=== PATIENT | female | born 1960 | race Caucasian/White ===

== ENCOUNTER 2022-04-25 10:30 | Emergency (ER) | payer MEDICAID, SELFPAY ==
[2022-04-25 10:39] VITALS: BP 150/89; PULSE 77; RESP 16; TEMP 37.1; O2SAT 99; BMI 23.6
[2022-04-25 11:48] LABS: COVID-19 Test Negative (Negative); IDNOW Serial# 16C4AD1C
--- NOTE | 2022-04-25 11:58 | ED.GENADULT ---
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 Patient did present to her primary care provider appointment this morning at [facility] and they stated that they would be unable to help her and referred her over here to the emergency room. Patient states that she felt mildly lightheaded today on shifting position from sitting to standing and states that she does have intermittent blurry vision which is typically associated with high sugars. She otherwise denies any fever, chills, traumatic event to the right shoulder and denies any shortness of breath, chest pain/palpitations and denies any GI or symptoms. Related Data Previous Rx's Medication Instructions Recorded metformin 500 mg tablet 500 mg PO BID 14 days #28 tabs 04/25/22 Allergies Allergy/AdvReac Type Severity Reaction Status Date / Time No Known Allergies Allergy Verified 04/25/22 10:43 Review of Systems Review of Systems: Pertinent positives and negatives as stated in HPI 10 point review of systems is otherwise negative. PMFSH Past Medical History Source: nursing notes reviewed Social History Social History Patient Tobacco Use Status: Never used Tobacco Use of substances other than those prescribed or required for medical reasons: No Advance Directives: No Advance Directives Information Provided: No Physical Exam ED Vital Signs: Vital Signs - 24 hr 04/25/22 10:39 04/25/22 12:00 04/25/22 13:55 Temperature 98.7 F Pulse Rate 77 69 74 Respiratory Rate 16 16 18 Blood Pressure 150/89 H 142/79 H 136/80 Pulse Oximetry 99 99 100 Oxygen Delivery Method Room Air Room Air Room Air BMI result Body Mass Index 23.6 VITAL SIGNS: Reviewed. GENERAL: Well developed, well nourished, in no acute distress. HEAD: Normocephalic/atraumatic EYES: PERRLA, EOMI EARS: Ext canals without abnormality OROPHARYNX: no oral lesions noted, posterior pharynx clear LUNGS: Normal breath sounds. No adventitious sounds or accessory muscle use. SpO2<99> CARDIOVASCULAR: Regular rate and rhythm without noted murmurs, no JVD or lower extremity edema. ABDOMEN: Soft, non-tender, non-distended with bowel sounds. MUSCULOSKELETAL: No tenderness, deformities, or effusions noted on gross inspection. EXTREMITIES: No cyanosis, clubbing or edema. SKIN: Inspection of the skin reveals no rashes NEUROLOGIC: Alert and oriented x 4. Strength and sensation to light touch were grossly intact x 4, no facial asymmetry, no pronator drift, cranial nerves 2-12 are grossly intact. Course Course Course Narrative: This 62-year-old female with history and clinical presentation suspicious for hyperglycemia and no access to medications at this time. She will be evaluated for the chest wall pain which on examination appears to be reproducible at the right upper chest wall and is otherwise PERC negative. Review of all investigations negative for acute findings and after patient received 2 L of IV fluids she states she is feeling much better. All results were discussed with her bedside and she knows that she will be receiving 2 weeks of medications and that she should call her primary care provider today to set up an appointment for re-evaluation in obtaining the rest of her medications. Medical Decision Making Lab Data Result diagrams: 04/25/22 12:03 04/25/22 12:03 Labs: Lab Results 04/25/22 04/25/22 04/25/22 Range/Units 11:25 12:03 12:03 WBC 6.9 (4.8-10.8) X10*3/uL RBC 3.90 L (4.20-5.50) X10*6/uL Hgb 11.3 L (12.0-16.0) g/dl Hct 34.6 L (37.0-47.0) % MCV 88.7 (80.0-98.0) fL MCH 29.0 (27.0-33.0) pg MCHC 32.7 (31.0-35.0) g/dl RDW 13.1 (11.0-16.0) % Plt Count 323 (160-400) X10*3/uL MPV 9.9 (9.4-12.3) fL Immature Gran % (Auto) 0.1 (0.0-0.4) % Neut % (Auto) 64.4 (45-73) % Lymph % (Auto) 26.8 (20-40) % [place] % (Auto) 7.7 (2-11) % Eos % (Auto) 0.4 (0-4) % Baso % (Auto) 0.6 (0-2) % Lymph # (Auto) 1.8 (1.2-4.9) X10*3/uL [place] # (Auto) 0.5 (0.1-1.2) X10*3/uL Eos # (Auto) 0.0 (0.0-0.4) X10*3/uL Baso # (Auto) 0.0 (0.0-0.2) X10*3/uL Abs Immat Gran (auto) 0.01 (0.00-0.03) X10*3/uL Absolute Neuts (auto) 4.4 (2.0-8.3) x10*3/uL Absolute Nucleated RBC 0.000 (0.0-0.012) X10*3/uL Nucleated RBC % (auto) 0.0 (0.0-0.2) /100WBC Sodium 144 (135-145) mmol/L Potassium 3.8 (3.3-5.1) mmol/L Chloride 106 (96-108) mmol/L Carbon Dioxide 26 (22-29) mmol/L Anion Gap 16 (12-20) BUN 11 (9-16) mg/dL Creatinine 0.88 (0.5-1.4) mg/dL Estim Creat Clear Calc 51.3 Estimated GFR > 60 POC Glucose (60-115) mg/dL Random Glucose 115 (60-115) mg/dL Calcium 9.9 (8.4-10.2) mg/dL Total Bilirubin 0.3 (0.0-1.0) mg/dL AST 30 (5-31) U/L ALT 34 H (0-31) U/L Alkaline Phosphatase 99 (39-117) U/L Total Protein 8.0 (6.5-8.0) g/dL Albumin 4.6 (3.5-5.0) g/dL Urine Color Urine Appearance Urine pH (5.0-9.0) Ur Specific [place] (1.005-1.025) Urine Protein (Neg-Trace) mg/dL Urine Glucose (UA) (Negative) mg/dL Urine Ketones (Negative) mg/dL Urine Blood (Negative) Urine Nitrite (Negative) Ur Leukocyte Esterase (Negative) Acetone, Qual Negative (Negative) COVID-19 (FREDRICK) Negative (Negative) COVID-19 Clin Com See Note 04/25/22 04/25/22 Range/Units 12:03 12:04 WBC (4.8-10.8) X10*3/uL RBC (4.20-5.50) X10*6/uL Hgb (12.0-16.0) g/dl Hct (37.0-47.0) % MCV (80.0-98.0) fL MCH (27.0-33.0) pg MCHC (31.0-35.0) g/dl RDW (11.0-16.0) % Plt Count (160-400) X10*3/uL MPV (9.4-12.3) fL Immature Gran % (Auto) (0.0-0.4) % Neut % (Auto) (45-73) % Lymph % (Auto) (20-40) % [place] % (Auto) (2-11) % Eos % (Auto) (0-4) % Baso % (Auto) (0-2) % Lymph # (Auto) (1.2-4.9) X10*3/uL [place] # (Auto) (0.1-1.2) X10*3/uL Eos # (Auto) (0.0-0.4) X10*3/uL Baso # (Auto) (0.0-0.2) X10*3/uL Abs Immat Gran (auto) (0.00-0.03) X10*3/uL Absolute Neuts (auto) (2.0-8.3) x10*3/uL Absolute Nucleated RBC (0.0-0.012) X10*3/uL Nucleated RBC % (auto) (0.0-0.2) /100WBC Sodium (135-145) mmol/L Potassium (3.3-5.1) mmol/L Chloride (96-108) mmol/L Carbon Dioxide (22-29) mmol/L Anion Gap (12-20) BUN (9-16) mg/dL Creatinine (0.5-1.4) mg/dL Estim Creat Clear Calc Estimated GFR POC Glucose 97 (60-115) mg/dL Random Glucose (60-115) mg/dL Calcium (8.4-10.2) mg/dL Total Bilirubin (0.0-1.0) mg/dL AST (5-31) U/L ALT (0-31) U/L Alkaline Phosphatase (39-117) U/L Total Protein (6.5-8.0) g/dL Albumin (3.5-5.0) g/dL Urine Color Straw Urine Appearance Clear Urine pH 5.5 (5.0-9.0) Ur Specific [place] <= 1.005 (1.005-1.025) Urine Protein Negative (Neg-Trace) mg/dL Urine Glucose (UA) Negative (Negative) mg/dL Urine Ketones Negative (Negative) mg/dL Urine Blood Negative (Negative) Urine Nitrite Negative (Negative) Ur Leukocyte Esterase Negative (Negative) Acetone, Qual (Negative) COVID-19 (FREDRICK) (Negative) COVID-19 Clin Com Discharge Plan Discharge Clinical Impression: Dehydration, Diabetes Patient Disposition: Home, Self-Care Instructions: Dehydration (ED), Diabetes and Nutrition (ED), Diabetes and Exercise (ED) Additional Instructions: 1. Se le proporcionar? 2 semanas de metformina. 2. Debe llamar al consultorio de rushing proveedor de atenci?n primaria hoy y programar orlando luis felipe para orlando reevaluaci?n. Regrese a la francis de emergencias si los s?ntomas empeoran. Prescriptions: New metformin 500 mg tablet 500 mg PO BID 14 Days Qty: 28 0RF Print Language: Taiwanese
[2022-04-25 12:00] VITALS: BP 142/79; PULSE 69; RESP 16; O2SAT 99
[2022-04-25] MEDS: 0.9 % Sodium Chloride 2,000 ML 999 ML IV (12:06)
[2022-04-25 12:08] LABS: MANUAL DIFF FLAG NO
[2022-04-25 12:09] LABS: Glucose, Whole Blood 97 mg/dL (60-115)
[2022-04-25 12:10] LABS: Basophils Percent Auto 0.6 % (0-2); Eosinophils Percent Auto 0.4 % (0-4); Hematocrit 34.6 % (37.0-47.0); Hemoglobin 11.3 g/dl (12.0-16.0); Imm Gran Abs Auto 0.01 X10*3/uL (0.00-0.03); Imm Gran Pct Auto 0.1 % (0.0-0.4); Lymphocytes Absolute Auto 1.8 X10*3/uL (1.2-4.9); Lymphocytes Percent Auto 26.8 % (20-40); Mean Corpuscular HGB Conc 32.7 g/dl (31.0-35.0); Mean Corpuscular Volume 88.7 fL (80.0-98.0); Mean Platelet Volume 9.9 fL (9.4-12.3); Monocytes Absolute Auto 0.5 X10*3/uL (0.1-1.2); Monocytes Percent Auto 7.7 % (2-11); Neutrophils Absolute Auto 4.4 x10*3/uL (2.0-8.3); Neutrophils Percent Auto 64.4 % (45-73); Platelet Count 323 X10*3/uL (160-400); Red Cell Distribution Width 13.1 % (11.0-16.0); White Blood Count 6.9 X10*3/uL (4.8-10.8)
[2022-04-25 12:25] LABS: Alanine Aminotransferase 34 U/L (0-31); Albumin Level 4.6 g/dL (3.5-5.0); Alkaline Phosphatase 99 U/L (39-117); Anion Gap 16 (12-20); Aspartate Amino Transferase 30 U/L (5-31); Bilirubin Total 0.3 mg/dL (0.0-1.0); Blood Urea Nitrogen 11 mg/dL (9-16); Calcium 9.9 mg/dL (8.4-10.2); Carbon Dioxide 26 mmol/L (22-29); Chloride 106 mmol/L (96-108); Creatinine Clr Calc Pharmacy 51.3; Estimated Glomerular Filt Rate > 60; Glucose Random 115 mg/dL (60-115); Potassium 3.8 mmol/L (3.3-5.1); Sodium 144 mmol/L (135-145)
[2022-04-25 12:27] LABS: Appearance Urine Clear; Color Urine Straw; Glucose Urine UA Negative (Negative); Leukocyte Esterase Urine Negative (Negative); Nitrite Urine Negative (Negative); PH 5.5 (5.0-9.0); Specific Gravity - Urine <= 1.005 (1.005-1.025); Urine Blood Negative (Negative); Urine Ketones Negative (Negative); Urine Protein Negative (Neg-Trace)
[2022-04-25 12:29] LABS: Acetone, serum QL Negative (Negative)
--- NOTE | 2022-04-25 12:51 | PC.NURSE ---
pt reports that she has been out of her diabetic meds x2 days, this morning she woke up with a headache and r shoulder pain that she relates to her sugar. she was seen by her pcp this morning and was referred to ed for further evaluation. she denies sob/cp/palpitations. poc 97 sandwich and juice given, vss.
[2022-04-25 13:55] VITALS: BP 136/80; PULSE 74; RESP 18; O2SAT 100
== END 2022-04-25 14:30 | disposition home or self-care (01) ==
PROVIDERS: Emergency Provider Student in an Organized Health Care Education/Training Program
DX: E86.0 Dehydration (principal); E11.9 Type 2 diabetes mellitus without complications; Z20.822 Contact with and (suspected) exposure to COVID-19; R51.9 Headache, unspecified
CPT/HCPCS: 80053; 81003; 82009; 82947; 85025; 87635; 96360; 96361; 99284

== ENCOUNTER 2022-09-24 10:59 | Outpatient (REF) | payer MEDICAID, SELFPAY ==
--- NOTE | ~2022-09-24 | XR_ITS ---
EXAMINATION: XR BILATERAL KNEES CLINICAL INFORMATION: Pain. COMPARISON: None. TECHNIQUE: 4 views of each knee. FINDINGS: RIGHT KNEE: There is no evidence of acute fracture or dislocation of the right knee. No right knee effusion is identified. There is prominent patella spurring at sites of insertion of the quadriceps and patella tendons. There is some prominence and question of an old fracture with some sclerosis about the tibial tubercle. No overlying soft tissue swelling is present in the study to suggest that this represents an acute fracture. The joint spaces are maintained. There is mild spurring about the lateral facet of the patellofemoral joint. LEFT KNEE: There is no evidence of acute fracture or dislocation of the left knee. No left knee effusion. Left knee joint spaces are maintained. There is mild spurring about the lateral facet of the patella. There is spurring at sites of insertion of the quadriceps and patellar tendons. XR/XR knee LT 4V IMPRESSION: 1. No acute fracture, dislocation, or effusion of either the right or left knees. 2. Question old avulsion injury involving the right tibial tubercle. 3. Changes of enthesopathy.
--- NOTE | ~2022-09-24 | XR_ITS ---
EXAMINATION: XR BILATERAL KNEES CLINICAL INFORMATION: Pain. COMPARISON: None. TECHNIQUE: 4 views of each knee. FINDINGS: RIGHT KNEE: There is no evidence of acute fracture or dislocation of the right knee. No right knee effusion is identified. There is prominent patella spurring at sites of insertion of the quadriceps and patella tendons. There is some prominence and question of an old fracture with some sclerosis about the tibial tubercle. No overlying soft tissue swelling is present in the study to suggest that this represents an acute fracture. The joint spaces are maintained. There is mild spurring about the lateral facet of the patellofemoral joint. LEFT KNEE: There is no evidence of acute fracture or dislocation of the left knee. No left knee effusion. Left knee joint spaces are maintained. There is mild spurring about the lateral facet of the patella. There is spurring at sites of insertion of the quadriceps and patellar tendons. XR/XR knee RT 4V IMPRESSION: 1. No acute fracture, dislocation, or effusion of either the right or left knees. 2. Question old avulsion injury involving the right tibial tubercle. 3. Changes of enthesopathy.
== END 2022-09-24 11:00 | disposition home or self-care (01) ==
LOC: HO.XRAY 10:59
PROVIDERS: PCP Internal Medicine; Visit Provider Internal Medicine
DX: M17.0 Bilateral primary osteoarthritis of knee (principal)
CPT/HCPCS: 73564

== ENCOUNTER 2022-10-09 15:00 | Outpatient (RCR) | payer MEDICAID, SELFPAY ==
--- NOTE | 2022-10-21 15:25 | MHC.PT.DC ---
[facility] [place] Office [place] Office [place] Office [address] [place] [address] [phone] F: [phone] F: [phone] F: [phone] F: [phone] Physical Therapy Discharge Report Diagnosis: TIFFANIE KNEE PAIN (KP) Date of Surgery: NA Date of Evaluation: 09/24/22 Date of Discharge: 10/21/22 Treatments to Date: 3 Cancellations to Date: 0 No Shows to Date: 4 Discharge Status: Visit Non-compliance Discharge Summary: no showed for 4 visits, no further visits scheduled. Attempts to reach patient by phone was not sucessful. Electronically signed by: Yesica Pizano PT DPT Please sign and return to therapist. Thank you for your referral.
== END 2022-10-21 15:25 | disposition home or self-care (01) ==
LOC: HO.PT 15:00
PROVIDERS: PCP Internal Medicine; Visit Provider Internal Medicine
DX: M17.0 Bilateral primary osteoarthritis of knee (principal)
CPT/HCPCS: 97110; 97161

== ENCOUNTER → 2022-12-31 09:28 | Outpatient (BNV) | payer MEDICAID, SELFPAY | PROVIDERS: PCP Internal Medicine; Visit Provider Internal Medicine Medical Oncology | DX: D64.9 Anemia, unspecified (principal) | CPT/HCPCS: 99204; 99213 ==

== ENCOUNTER 2023-02-14 10:44 | Outpatient (REF) | payer MEDICAID, SELFPAY ==
--- NOTE | ~2023-02-14 | MM_ITS ---
EXAMINATION: BONE DENSITOMETRY CLINICAL INDICATION: Osteopenia. COMPARISON: This is the patient's baseline examination. TECHNIQUE: Using a [employer] DXA System (software version: 13.1) manufactured by [employer], dual-energy x-ray absorptiometry was performed of the lumbar spine and left hip. The images are of good technical quality. Summary results are attached. FINDINGS: AP SPINE L1-L4: BMD 1.367 g/cm2, Z-score 3.1, T-score 1.6, normal. LEFT FEMUR, NECK: BMD 0.997 g/cm2, Z-score 1.2, T-score -0.3, normal. LEFT FEMUR, TOTAL: BMD 1.132 g/cm2, Z-score 2.1, T-score 1.0, normal. IDENTIFIED RISK FACTORS: Menopause, osteoporosis, rheumatoid arthritis. HISTORY OF FRACTURE: None listed. MEDICATIONS: None listed. MM/XR DEXA axial skeleton IMPRESSION: 1. DIAGNOSIS: Normal bone density based on the lowest T-score value of -0.3 in the femoral neck applying World Health Organization criteria. 2. 10-YEAR FRACTURE RISK PREDICTION, FRAX: According to the guidelines, FRAX calculation should only be performed on patients in the osteopenia bone density category. Therefore, FRAX was not performed on this patient. 3. Treatment Recommendations: NOF guidelines recommend consideration for treatment in postmenopausal women and men age 50 and older presenting with the following: -A hip or vertebral (clinical or morphometric) fracture. -T-score less than or equal to -2.5 at the femoral neck or spine after appropriate evaluation to exclude secondary causes. -Low bone mass at the hip or spine and a 10-year fracture probability by FRAX of greater than or equal to 3% for hip fracture or greater than or equal to 20% for major osteoporotic fracture based on the [place] adapted WHO algorithm. 4. Other Recommendations: All treatment decisions require clinical judgment and consideration of individual patient factors, including patient preferences, comorbidities, previous drug use, risk factors not captured in the FRAX model (e.g. frailty, falls, vitamin D deficiency, increased bone turnover, interval significant decline in bone density) and possible under or overestimation of fracture risk by FRAX. FUTURE SCAN RECOMMENDATION: People with diagnosed cases of osteoporosis or at high risk for fracture should have regular bone mineral density tests. For patients eligible for Medicare, routine testing is allowed once every 2 years. The testing frequency can be increased to one year for patients who have rapidly progressing disease, those who are receiving or discontinuing medical therapy to restore bone mass, or have additional risk factors.
== END 2023-02-14 10:45 | disposition home or self-care (01) ==
LOC: HO.MAMMO 10:44
PROVIDERS: PCP Internal Medicine; Visit Provider Internal Medicine
DX: Z13.820 Encounter for screening for osteoporosis (principal); Z78.0 Asymptomatic menopausal state; M89.9 Disorder of bone, unspecified
CPT/HCPCS: 77080

== ENCOUNTER 2023-05-19 09:16 | Outpatient (REF) | payer MEDICAID, SELFPAY ==
--- NOTE | ~2023-05-19 | MM_ITS ---
EXAMINATION: MM SCREENING DIGITAL BREAST TOMOSYNTHESIS, BILATERAL CLINICAL INFORMATION: Screening. Asymptomatic. COMPARISON: Mammography: 09/16/2006 TECHNIQUE: Digital breast tomosynthesis is performed in both the craniocaudal and mediolateral oblique views along with computer-aided detection (CAD). Synthesized 2D images are generated from the tomosynthesis. FINDINGS: There are scattered areas of fibroglandular density (ACR BI-RADS breast composition Category b). There are no suspicious masses, suspicious grouped calcifications, or areas of architectural distortion in either breast. The parenchymal pattern is stable from prior exams. MM/MM tomosynthesis screening BI IMPRESSION: No mammographic evidence of malignancy. ASSESSMENT: BI-RADS BI-RADS 1 - Negative RECOMMENDATION: Routine annual mammography screening. 1 year F/U This examination should not preclude the clinical evaluation of a suspicious palpable abnormality. This patient's information was entered into a reminder system with a target due date for their next mammogram.
== END 2023-05-19 09:17 | disposition home or self-care (01) ==
LOC: HO.MAMMO 09:16
PROVIDERS: PCP Internal Medicine; Visit Provider Internal Medicine
DX: Z12.31 Encounter for screening mammogram for malignant neoplasm of breast (principal)
CPT/HCPCS: 77063; 77067

== ENCOUNTER → 2023-05-19 10:00 | Outpatient (BNV) | payer MEDICAID, SELFPAY | PROVIDERS: PCP Internal Medicine; Visit Provider Radiology Diagnostic Radiology | DX: Z12.31 Encounter for screening mammogram for malignant neoplasm of breast (principal) | CPT/HCPCS: 77063; 77067 ==

== ENCOUNTER 2023-05-26 11:45 | Outpatient (REF) | payer MEDICAID, SELFPAY | END 2023-05-26 11:46 | disposition home or self-care (01) | LOC: HO.HOSX 11:45 | PROVIDERS: PCP Internal Medicine; Visit Provider Orthopaedic Surgery | DX: M25.561 Pain in right knee (principal); M25.562 Pain in left knee | CPT/HCPCS: 73565 ==

== ENCOUNTER 2023-05-26 11:45 | Outpatient (AMB) | payer MEDICAID, SELFPAY ==
[2023-05-26 12:10] VITALS: BMI 23.4
--- NOTE | 2023-05-26 12:10 | A.OFFVIS_ITS ---
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 States her right is worse than her left. Pain present for about 2+ years. States her knees feels like they will give out and has swelling with over use. Patient has tried P.T in thepast with good pain relief. 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 She complains of pain with daily activity, over the tibial tubercles bilaterally. She was told she would have to live with this pain her entire life. Her pain is worse with stairs or standing up off the floor. She says her knees swell from over use and occasionally feel like they will give out on her. Her pain worsened after she moved to her new apartment as she has more stairs to climb. She has done PT in the past, with good relief of her pain, and denies any prior injection. [facility] Family History Mother Father COPD (chronic obstructive pulmonary disease) Brother COPD (chronic obstructive pulmonary disease) Social History Household Members: Family Patient Tobacco Use Status: Never used Tobacco Second Hand Smoke Exposure: No service: No Current occupational status: unemployed Gender identity: Female Review of Systems Const All systems reviewed & are unremarkable except as noted in HPI and below Physical Exam Vital Signs: BMI result Body Mass Index 23.4 Const General: no acute distress, alert and awake Orientation/consciousness: patient oriented x3 HEENT Head: Yes normocephalic and Yes atraumatic Eyes EOM: EOMs intact bilaterally Resp Effort & Inspection: normal respiratory effort and able to speak in complete sentences Cardio Jugular venous distension: no JVD Skin General skin exam: turgor normal Rashes: no rashes Neuro General: patient oriented x3 Extrem Other: Bilateral Knees: Very prominent tibial tubercles Full ROM No reproducible pain Psych Appearance: grossly normal Affect: normal affect Attitude: cooperative Results Reviewed Results Reviewed: I personally reviewed relevant radiographs. Valgus pattern with prominent tibial tubercles bilaterally No degenerative changes Assessment & Plan Assessment & Plan (1) Knee pain, bilateral: Code(s): M25.561 - Pain in right knee; M25.562 - Pain in left knee Plan: This is a 63 year old woman with bilateral knee prominent tibial tubercles. She has occasional discomfort with kneeling, stairs and getting up off the floor.. She found some relief from her pain with PT in the past. I discussed her diagnosis and treatment options. There is no acute intervention warranted at this time. If her discomfort worsens she may return to consider bracing and/or injections Orders: Orders XR knee standing BI 05/26/23 M25.569 - Pain in unspecified knee Coding Level of Care Code New Pt Level 3 (66729) Diagnoses Knee pain, bilateral M25.561; M25.562
== END 2023-05-26 13:06 | disposition home or self-care (01) ==
PROVIDERS: PCP Internal Medicine; Visit Provider Orthopaedic Surgery
DX: M25.561 Pain in right knee (principal); M25.562 Pain in left knee
CPT/HCPCS: 99203

== ENCOUNTER 2023-10-01 10:06 | Outpatient (REF) | payer MEDICAID, SELFPAY ==
[2023-10-01 11:45] LABS: MANUAL DIFF FLAG NO
[2023-10-01 11:48] LABS: Basophils Percent Auto 0.6 % (0-2); Eosinophils Percent Auto 0.8 % (0-4); Hematocrit 32.3 % (37.0-47.0); Hemoglobin 10.5 g/dl (12.0-16.0); Imm Gran Abs Auto 0.01 X10*3/uL (0.00-0.03); Imm Gran Pct Auto 0.2 % (0.0-0.4); Lymphocytes Absolute Auto 1.8 X10*3/uL (1.2-4.9); Lymphocytes Percent Auto 33.9 % (20-40); Mean Corpuscular HGB Conc 32.5 g/dl (31.0-35.0); Mean Corpuscular Hemoglobin 28.8 pg (27.0-33.0); Mean Corpuscular Volume 88.7 fL (80.0-98.0); Mean Platelet Volume 10.4 fL (9.4-12.3); Monocytes Absolute Auto 0.4 X10*3/uL (0.1-1.2); Monocytes Percent Auto 6.7 % (2-11); Neutrophils Percent Auto 57.8 % (45-73); Platelet Count 332 X10*3/uL (160-400); Red Blood Count 3.64 X10*6/uL (4.20-5.50); Red Cell Distribution Width 13.5 % (11.0-16.0); White Blood Count 5.2 X10*3/uL (4.8-10.8)
[2023-10-01 12:32] LABS: Creatinine Urine 125.06 mg/dL; Microalbum/Creatinine Ratio Ur 4.7 ug/mg cr (<30)
[2023-10-01 13:03] LABS: Anion Gap 16 (12-20); Blood Urea Nitrogen 8 mg/dL (9-16); Calcium 9.6 mg/dL (8.4-10.2); Carbon Dioxide 27 mmol/L (22-29); Chloride 105 mmol/L (96-108); Cholesterol 139 mg/dL (<200); Estimated Glomerular Filt Rate > 60; Glucose Random 157 mg/dL (60-115); HDL Cholesterol 47 mg/dL (>40); LDL Cholesterol Calculated 67 mg/dL (<100); Potassium 3.9 mmol/L (3.3-5.1); Sodium 144 mmol/L (135-145); Triglycerides 126 mg/dL (<150)
[2023-10-01 14:14] LABS: TSH reflex Free T4 2.36 uIU/mL (0.32-4.0); Vitamin D 25-OH Total 35.4 ng/mL (>30)
[2023-10-01 14:16] LABS: Reflex LDLD? No
[2023-10-02 08:00] LABS: HBS Num1 > 1000.00 mIU/mL (0-7.99); HBc Num1 6.43 S/CO (0.00-0.79); HBsAGNum1 0.32 S/CO (0.00-0.99); Hepatitis A Antibody IgM 0.56 Index (0-0.79); Hepatitis B Surface Antigen Negative (Negative); ~HepC Num1 0.07 S/CO (0.00-0.79); ~Hepatitis A Antibody IgM Nonreactive (Nonreactive); ~Hepatitis B Surface Antibody REACTIVE (Nonreactive); ~Hepatitis C Antibody Nonreactive (Nonreactive)
[2023-10-02 09:56] LABS: HBc Num2 6.42 S/CO; HBc Num3 6.28 S/CO; Hepatitis B Core Antibody Reactive (Nonreactive)
[2023-10-04 12:44] LABS: TS Negative Control Passed; TS Panel A 0; TS Panel B 0; TS Positive Control Passed; TSpotTB Negative (Negative)
== END 2023-10-01 10:07 | disposition home or self-care (01) ==
LOC: HO.HHCL 10:06
PROVIDERS: Visit Provider Internal Medicine
DX: E11.9 Type 2 diabetes mellitus without complications (principal); R55 Syncope and collapse; D64.9 Anemia, unspecified; Z00.00 Encounter for general adult medical examination without abnormal findings; Z11.1 Encounter for screening for respiratory tuberculosis; Z11.4 Encounter for screening for human immunodeficiency virus [HIV]
CPT/HCPCS: 36415; 80048; 80061; 82043; 82306; 82570; 84443; 85025; 86481; 86704; 86705; 86706; 86709; 86803; 87340

== ENCOUNTER 2023-10-02 07:33 | Outpatient (REF) | payer MEDICAID, SELFPAY ==
--- NOTE | ~2023-10-02 | CT_ITS ---
CT HEAD WITHOUT IV CONTRAST INDICATION: Headache. Presyncope. COMPARISON: None available. TECHNIQUE: Multidetector CT acquisitions of the head was obtained without IV contrast. This CT examination was performed using dose optimization techniques as appropriate, variously including the following: *Automated exposure control *Adjustment of mA and/or kV according to patient size (this includes techniques or standardized protocols for targeted exams where dose is matched to indication/reason for exam; i.e. extremities or head) *Use of iterative reconstruction technique FINDINGS: There is no intracranial hemorrhage, hydrocephalus, extra-axial surface collection, midline shift, or other herniation pattern. Ying to white matter differentiation is diffusely maintained without evidence of an evolved acute territorial infarct. The basilar cisterns are preserved. No significant soft tissue abnormality. No acute osseous abnormality. The paranasal sinuses and the mastoid air cells are well aerated. CT/CT head/brain wo IV con IMPRESSION: No acute intracranial abnormality.
== END 2023-10-02 07:34 | disposition home or self-care (01) ==
LOC: HO.CT 07:33
PROVIDERS: PCP Internal Medicine; Visit Provider Internal Medicine
DX: R55 Syncope and collapse (principal)
CPT/HCPCS: 70450

== ENCOUNTER 2024-04-13 | Outpatient (REF) | payer MEDICAID, SELFPAY ==
[2024-04-16 15:10] LABS: HPV mRNA E6/E7 rflx NOT DETECTED
== END 2024-04-13 00:01 | disposition home or self-care (01) ==
LOC: HO.LNP
PROVIDERS: Visit Provider Internal Medicine
DX: Z12.4 Encounter for screening for malignant neoplasm of cervix (principal); Z11.51 Encounter for screening for human papillomavirus (HPV); R87.614 Cytologic evidence of malignancy on smear of cervix
CPT/HCPCS: 87624; 88175

== ENCOUNTER 2024-05-20 08:45 | Outpatient (REF) | payer MEDICAID, SELFPAY ==
--- NOTE | ~2024-05-20 | MM_ITS ---
EXAMINATION: MM SCREENING DIGITAL BREAST TOMOSYNTHESIS, BILATERAL CLINICAL INFORMATION: Screening. Asymptomatic. COMPARISON: Mammography: Comparison is made with available priors TECHNIQUE: Digital breast mammography with tomosynthesis is performed in both the craniocaudal and mediolateral oblique views along with computer-aided detection (CAD). FINDINGS: There are scattered areas of fibroglandular density (ACR BI-RADS breast composition Category b). There are no significant masses, abnormal calcifications, or other abnormalities. MM/MM tomosynthesis screening BI IMPRESSION: No mammographic evidence of malignancy. ASSESSMENT: BI-RADS BI-RADS 1 - Negative RECOMMENDATION: Routine annual mammography screening. 1 year F/U This examination should not preclude the clinical evaluation of a suspicious palpable abnormality. This patient's information was entered into a reminder system with a target due date for their next mammogram. Electronically signed by: Jossie Terrazas DO 05/31/2024 05:18 PM EDT
== END 2024-05-20 08:46 | disposition home or self-care (01) ==
LOC: HO.MAMMO 08:45
PROVIDERS: PCP Internal Medicine; Visit Provider Internal Medicine
DX: Z12.31 Encounter for screening mammogram for malignant neoplasm of breast (principal)
CPT/HCPCS: 77063; 77067

== ENCOUNTER → 2024-05-20 09:45 | Outpatient (BNV) | payer MEDICAID, SELFPAY | PROVIDERS: PCP Internal Medicine; Visit Provider Internal Medicine | DX: Z12.31 Encounter for screening mammogram for malignant neoplasm of breast (principal) | CPT/HCPCS: 77063; 77067 ==

== ENCOUNTER 2024-07-07 12:33 | Outpatient (REF) | payer MEDICAID, SELFPAY ==
--- NOTE | ~2024-07-07 | US_ITS ---
EXAMINATION: US DIAGNOSTIC ULTRASOUND BREAST, LEFT CLINICAL INFORMATION: 64-year-old female complaining of upper left breast pain. No palpable abnormality. Negative mammography 05/20/2024. COMPARISON: Mammography 05/20/2024, 05/19/2023. TECHNIQUE: Ultrasound of the left breast is performed with real-time torres scale imaging and color Doppler. Attention was given to the 9:00 to the 3:00 axis to include the area of reported pain. FINDINGS: There is no focal suspicious finding. There is no solid mass, architectural abnormality, abnormal shadowing, cystic abnormality, or edema in the soft tissue planes. Only normal fatty breast tissue is identified. No correlate to the region of pain. US/US breast LT limited mamm only IMPRESSION: No findings suspicious for malignancy. -No imaging correlate identified to explain superior left breast pain. Recommend clinical management and follow-up. Otherwise, recommend resuming routine annual screening mammography. ASSESSMENT: BI-RADS 1: Negative RECOMMENDATION: 1. Patient should be managed based on the clinical impression. 2. Otherwise, routine annual screening mammography. Electronically signed by: Junior Monsalve MD 07/07/2024 01:10 PM RAMON KAUR
== END 2024-07-07 12:34 | disposition home or self-care (01) ==
LOC: HO.MAMMO 12:33
PROVIDERS: PCP Internal Medicine; Visit Provider Internal Medicine
DX: N64.4 Mastodynia (principal)
CPT/HCPCS: 76642

== ENCOUNTER → 2024-07-07 13:00 | Outpatient (BNV) | payer MEDICAID, SELFPAY | PROVIDERS: PCP Internal Medicine; Visit Provider Radiology Diagnostic Radiology | DX: N64.4 Mastodynia (principal) | CPT/HCPCS: 76642 ==

== ENCOUNTER 2024-08-23 09:42 | Outpatient (REF) | payer MEDICAID, SELFPAY ==
[2024-08-23 11:13] LABS: MANUAL DIFF FLAG NO
[2024-08-23 11:16] LABS: Basophils Percent Auto 0.6 % (0-2); Eosinophils Absolute Auto 0.1 X10*3/uL (0.0-0.4); Hemoglobin 10.9 g/dl (12.0-16.0); Imm Gran Abs Auto 0.01 X10*3/uL (0.00-0.03); Imm Gran Pct Auto 0.2 % (0.0-0.4); Lymphocytes Absolute Auto 1.6 X10*3/uL (1.2-4.9); Lymphocytes Percent Auto 31.1 % (20-40); Mean Corpuscular HGB Conc 32.1 g/dl (31.0-35.0); Mean Corpuscular Hemoglobin 28.4 pg (27.0-33.0); Mean Corpuscular Volume 88.5 fL (80.0-98.0); Mean Platelet Volume 10.5 fL (9.4-12.3); Monocytes Absolute Auto 0.4 X10*3/uL (0.1-1.2); Monocytes Percent Auto 8.5 % (2-11); Neutrophils Percent Auto 58.6 % (45-73); Platelet Count 353 X10*3/uL (160-400); Red Blood Count 3.84 X10*6/uL (4.20-5.50); Red Cell Distribution Width 13.4 % (11.0-16.0); White Blood Count 5.2 X10*3/uL (4.8-10.8)
[2024-08-23 11:37] LABS: Alanine Aminotransferase 23 U/L (0-31); Albumin Level 4.2 g/dL (3.5-5.0); Alkaline Phosphatase 91 U/L (39-117); Anion Gap 13 (12-20); Aspartate Amino Transferase 26 U/L (5-31); Bilirubin Total 0.3 mg/dL (0.0-1.0); Blood Urea Nitrogen 9 mg/dL (9-16); Calcium 9.2 mg/dL (8.4-10.2); Carbon Dioxide 26 mmol/L (22-29); Chloride 108 mmol/L (96-108); Cholesterol 157 mg/dL (<200); Estimated Glomerular Filt Rate > 60; Glucose Random 159 mg/dL (60-115); HDL Cholesterol 54 mg/dL (>40); LDL Cholesterol Calculated 87 mg/dL (<100); Potassium 3.9 mmol/L (3.3-5.1); Sodium 143 mmol/L (135-145); Total Protein 7.6 g/dL (6.5-8.0); Triglycerides 82 mg/dL (<150)
[2024-08-23 11:45] LABS: Creatinine Urine 177.98 mg/dL; Microalbum/Creatinine Ratio Ur 6.7 ug/mg cr (<30)
[2024-08-23 11:48] LABS: Ferritin 57 ng/mL (10-250)
[2024-08-23 11:50] LABS: HIV AB/AG Nonreactive (Nonreactive); HIV Num 1 0.05 S/CO (0.00-0.99)
[2024-08-23 11:52] LABS: Reflex LDLD? No; Syphilis Screen Nonreactive (Nonreactive)
== END 2024-08-23 09:43 | disposition home or self-care (01) ==
LOC: HO.HHCL 09:42
PROVIDERS: Internal Medicine Medical Oncology; Visit Provider Internal Medicine
DX: E11.9 Type 2 diabetes mellitus without complications (principal); B97.7 Papillomavirus as the cause of diseases classified elsewhere; D64.9 Anemia, unspecified
CPT/HCPCS: 36415; 80053; 80061; 82043; 82306; 82570; 82728; 85025; 86780; 87389

== ENCOUNTER 2025-03-31 17:29 | Outpatient (REF) | payer MEDICAID, SELFPAY ==
[2025-03-31 20:49] LABS: Bacterial Vaginosis PCR NEGATIVE (Negative); Candida Group PCR NOT DETECTED (Not Detect); Candida glab krusei PCR NOT DETECTED (Not Detect); Trichomonas vaginalis PCR NOT DETECTED (Not Detect)
== END 2025-03-31 17:30 | disposition home or self-care (01) ==
LOC: HO.HHCLNP 17:29
PROVIDERS: Visit Provider Nurse Practitioner Family
DX: R30.9 Painful micturition, unspecified (principal)
CPT/HCPCS: 81515

== ENCOUNTER 2025-07-23 12:01 | Emergency (ER) | payer MEDICAID, SELFPAY ==
--- OUTSIDE RECORDS SUMMARY | 2025-07-20 15:40 | XMS_ITS | Encounter Summary ---
Author Organization [employer] Address [address] [facility] [address] [place] [address] Care Team Providers Care Cryptologic Linguist Name Role Phone Anna Magallanes MD Primary Care Provider + Encounter Details Date Type Department Care Team (Late st Contact Info) Description 07/20/2025 3:40 PM EST Office Visit [facility] [address] [place] [address] Anmol Nicole MD [address] [place] [address] Dizziness (Primary Dx); Epigastric discomfort Social History Tobacco Use Types Packs/Day Years Used Date Smoking Tobacco: Never Passive Smoke Exposure: Never Smokeless Tobacco: Never Alcohol Use Standard Drinks/Week Comments Never 0 (1 standard drink = 0.6 oz pur e alcohol) Depression Answer Date Recorded Patient Health Questionnaire-9 Score 5 04/28/2025 Patient Health Questionnaire-9 Score 5 04/28/2025 Last PHQ-9: Questionnaire Data Not on file 0 04/28/2025 Housing Stability Answer Date Recorded What is your housing situation today? I have rios payan 04/13/[address] you li ve. Do you have problems with any of the following? None of the above 04/13/2024 Food Insecurity Answer Date Recorded Within the past 12 months, y ou worried that your food would run out before you got money to buy more: Never True 04/13/2024 Within the past 12 months,th e food you bought just didn't last and you didn't have enough money to get more: Never True Transportation Answer Date Recorded In the past 12 months, has l ack of transportation kept you from medical appts, meetings, work or from getting things needed for daily living? Yes, it has kept me from non-medical meetings, work, or getting things that I need 09/29/2024 Utilities Answer Date Recorded In the past 12 months, has t he electric, gas, oil or water company threatened to shut off services in your home? No 04/13/2024 Depression Answer Date Recorded Patient Health Questionnaire-2 Score 2 04/28/2025 Internet Access Answer Date Recorded Internet Access Q1 Yes 04/23/2024 Internet Access Q2 Not on file 04/23/2024 Comments No Sex and Gender Information Value Date Recorded Sex Assigned at Female 06/24/2022 10:15 AM EDT Legal Sex Female 10:15 AM EDT Gender Identity Female 06/24/2022 10:15 AM EDT Sexual Orientation Straight 06/24/2022 10 :15 AM EDT documented as of this encounter Last Filed Vital Signs Vital Sign Reading Time Taken Comments Blood Pressure 122/85 07/20/2025 3:36 PM EST Pulse 91 07/20/2025 3:36 PM EST Temperature 36.8 C (98.2 F) 07/20/2025 3:36 PM EST Respiratory Rate 20 07/20/2025 3:36 PM EST Oxygen Saturation 100% 07/20/2025 3:36 PM EST Inhaled Oxygen Concentration - - Weight 53.5 kg (118 lb) 07/20/2025 3:36 PM EST Height 154.9 cm (5' 1 ) 07/20/2025 3:36 PM EST Body Mass Index 22.3 07/20/2025 3:36 PM EST documented in this encounter Progress Notes * Anmol Nicole MD - 07/20/2025 3:40 PM EST Subjective Patient ID: Gisel Johnston is a 65 y.o. female. HPI Extended Insurance Clerk: Renae 2 weeks ago Gisel had onset of dizziness and nausea; dizziness is described as blurry vision, feeling confused, being off balance, diarrhea 1x/day, epigastric discomfort, and the room spins when she lays down. Symptoms are mild when she wakes in the AM, and worsen in the evening. No fever, vomiting, SOB, cough, or headache.. She stopped mirtazapine after symptoms started, but symptoms persist. Lives with granddaughter. Not employed. Never smoked. No EtOH. No illicit substances. Patient Active Problem List Diagnosis Date Noted Painful urination 03/31/2025 Prolapsed uterus 03/31/2025 Chronic bilateral lower abdominal pain 03/31/2025 Current moderate episode of major depressive disorder (CMS/HCC) (HCC) 02/28/2025 Primary hypertension 10/13/2024 Breast pain, left 06/17/2024 Pre-syncope 08/29/2023 Encounter for preventive health examination 08/29/2023 Encounter for colorectal cancer screening 08/29/2023 Screening mammogram for breast cancer 05/09/2023 HPV in female 02/12/2023 Bone disease 01/24/2023 At high risk for osteoporosis 12/20/2022 Anemia 11/21/2022 Primary osteoarthritis of both knees 08/15/2022 Primary osteoarthritis of both hands 08/15/2022 Anxiety 08/14/2022 Depressive disorder 08/14/2022 Generalized arthritis 08/14/2022 Hyperlipidemia 08/14/2022 Type 2 diabetes mellitus without complication 08/14/2022 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 Eyes: Positive for visual disturbance. Respiratory: Negative for shortness of breath. Cardiovascular: Negative for chest pain. Gastrointestinal: Positive for abdominal pain, diarrhea and nausea. Negative for vomiting. Skin: Negative for rash. Neurological: Positive for dizziness. Negative for headaches. Objective Physical Exam Constitutional: Appearance: Normal appearance. HENT: Right Ear: Tympanic membrane, ear canal and external ear normal. Left Ear: Tympanic membrane, ear canal and external ear normal. Nose: Nose normal. Mouth/Throat: Mouth: Mucous membranes are moist. Pharynx: Oropharynx is clear. Eyes: Conjunctiva/sclera: Conjunctivae normal. Pupils: Pupils are equal, round, and reactive to light. Cardiovascular: Rate and Rhythm: Normal rate and regular rhythm. Heart sounds: No murmur heard. Pulmonary: Effort: Pulmonary effort is normal. Breath sounds: Normal breath sounds. Musculoskeletal: General: Normal range of motion. Cervical back: No tenderness. Skin: Findings: No rash. Neurological: Mental Status: She is alert. Cranial Nerves: Cranial nerves 2-12 are intact. Sensory: Sensation is intact. Motor: Motor function is intact. No pronator drift. Coordination: Romberg sign positive. Ynnmkg-Efdt-Iybicy Test normal. Gait: Gait is intact. Psychiatric: Mood and Affect: Mood normal. Behavior: Behavior normal. Procedures Assessment/Plan Diagnoses and all orders for this visit: Dizziness Symptoms have been constant, worse in the evenings. Gisel is uncomfortable here in exam room. She is going to the ED now for further evaluation and treatment. Epigastric discomfort To be evaluated in the ED as above. H. pylori stool antigen ordered. Will call patient with results. documented in this encounter Plan of Treatment Upcoming Encounters Date Type Department Care Team (Late st Contact Info) Description 09/21/2025 2:30 PM EST Office Visit [facility] [address] [place], [place] [id number] Jaleel, Angélica, OD [address] [place], [place] [id number] Scheduled Orders Name Type Priority Associated Diagnoses Orde r Schedule Helicobacter pylori Antigen, EIA, Stool Lab Routine Epigastric discomfort Expected: 07/20/2025 (Approximate), Expires: 07/20/2026 documented as of this encounter Goals Goal Patient Goal Type Associated Problems Recent Progress Patient-Stated? Author Help patients manage their type 2 diabetes Care Plan Help patients manage their type 2 diabetes Heidi Sullivan Weekly blood pressure task Care Plan Weekly blood pressure task No Heidi Yepez Help patients manage their type 2 diabetes Care Plan Help patients manage their type 2 diabetes No Heidi Yepez Patient has chronic kidney disease Care Plan Patient has chronic kidney disease No Heidi Yepez Weekly blood pressure task Care Plan Weekly blood pressure task No Heidi Yepez Patient has chronic kidney disease Care Plan Patient has chronic kidney disease No Heidi Yepez Weekly blood pressure task Care Plan Weekly blood pressure task No Clint Stanley Weekly blood pressure task Care Plan Weekly blood pressure task No Clint Stanley Patient has chronic kidney disease Care Plan Patient has chronic kidney disease No Clint Stanley Patient has chronic kidney disease Care Plan Patient has chronic kidney disease No Clint Stanley Weekly blood pressure task Care Plan Weekly blood pressure task No Neyda Villalta Weekly blood pressure task Care Plan Weekly blood pressure task No Neyda Villalta Patient has chronic kidney disease Care Plan Patient has chronic kidney disease No Neyda Villalta Patient has chronic kidney disease Care Plan Patient has chronic kidney disease No Neyda Villalta Weekly blood pressure task Care Plan Weekly blood pressure task No Renae Ayala [place] Weekly blood pressure task Care Plan Weekly blood pressure task No Renae Ayala [place] Patient has chronic kidney disease Care Plan Patient has chronic kidney disease No Renae Ayala [place] Patient has chronic kidney disease Care Plan Patient has chronic kidney disease No Renae Ayala [place] documented as of this encounter Visit Diagnoses Diagnosis Dizziness- Primary Dizziness and giddiness Epigastric discomfort documented in this encounter Additional Health Concerns Active Problems Noted Date Diagnosed Date Help patients manage their type 2 diabetes 07/11 Weekly blood pressure task 07/11/2025 Help patients manage their type 2 diabetes 07/11 Patient has chronic kidney disease 07/11/2025 Weekly blood pressure task 07/11/2025 Patient has chronic kidney disease 07/11/2025 Weekly blood pressure task 07/11/2025 Weekly blood pressure task 07/11/2025 Patient has chronic kidney disease 07/11/2025 Patient has chronic kidney disease 07/11/2025 Weekly blood pressure task 07/15/2025 Weekly blood pressure task 07/15/2025 Patient has chronic kidney disease 07/15/2025 Patient has chronic kidney disease 07/15/2025 Weekly blood pressure task 07/20/2025 Weekly blood pressure task 07/20/2025 Patient has chronic kidney disease 07/20/2025 Patient has chronic kidney disease 07/20/2025 Assessment Noted Time PHQ-9 Depression Total Score: 5 04/28/20 25 12:31 PM EDT documented as of this encounter Care Teams Cryptologic Linguist Relationship Specialty Start Date End Date Anna Magallanes MD [address] [place] [id number] PCP - General Internal Medicine 08/15/22 documented as of this encounter
[2025-07-23 12:13] VITALS: BP 116/57; PULSE 75; RESP 18; TEMP 36; O2SAT 98; BMI 21.0
--- NOTE | 2025-07-23 12:18 | ED.GENADULT ---
HPI - General Adult General Chief complaint: Abdominal Pain Stated complaint: vomiting Time Seen by Provider: 07/23/25 16:04 History of Present Illness ED Provider: dejuan HPI narrative: Pt left prior to eval by myself. see RN notes Related Data Home Medications ?Medication ?Instructions ?Recorded ?Confirmed aspirin 81 mg tablet,delayed 81 mg PO DAILY 12/31/22 02/14/25 release atorvastatin 10 mg tablet 10 mg PO DAILY 12/31/22 02/14/25 mirtazapine 30 mg tablet 30 mg PO BEDTIME 12/31/22 02/14/25 Previous Rx's ?Medication ?Instructions ?Recorded metformin 500 mg tablet 500 mg PO BID 14 days #28 tabs 04/25/22 cyanocobalamin (vitamin B-12) 1,000 mcg sublingual DAILY #90 ea 04/01/24 1,000 mcg sublingual lozenge ascorbic acid (vitamin C) 500 mg 500 mg PO DAILY #90 tabs 06/17/25 tablet (Vitamin C) ferrous sulfate 325 mg (65 mg 325 mg PO DAILY #90 tabs 06/17/25 iron) tablet Allergies Allergy/AdvReac Type Severity Reaction Status Date / Time No Known Allergies Allergy Verified 07/23/25 12:16 [facility] Family History Family History Mother Father COPD (chronic obstructive pulmonary disease) Brother COPD (chronic obstructive pulmonary disease) Social History Social History Household Members: Family Patient Tobacco Use Status: Never used Tobacco Second Hand Smoke Exposure: No Advance Directives: No Advance Directives Information Provided: No Do you have a plan to hurt others: No Plan service: No Current occupational status: unemployed Gender identity: Female Physical Exam ED Vital Signs: Vital Signs - 24 hr 07/23/25 12:13 07/23/25 16:11 Temperature 96.8 F 97.3 F Pulse Rate 75 70 Respiratory Rate 18 16 Blood Pressure 116/57 L 119/76 Pulse Oximetry 98 100 Oxygen Delivery Method Room Air Room Air BMI result Body Mass Index 21.0 Course Course Course Narrative: This is a Rapid Medical Examination (RME) performed by Norberto De La Garza PA-C in triage. Full HPI, ROS, assessment and treatment plan per primary provider in the Main ED. Hx: 65 yo F here for eval of nausea, epigastric abd pain, dizziness, x2 weeks. no vomiting. dizziness described as intermittent room spinning sensation. Plan: labs, ekg Medical Decision Making Lab Data 07/23/25 12:35 07/23/25 12:35 Labs: Lab Results 07/23/25 Range/Units 12:35 WBC 6.0 (4.8-10.8) X10*3/uL RBC 3.69 L (4.20-5.50) X10*6/uL Hgb 10.5 L (12.0-16.0) g/dl Hct 31.8 L (37.0-47.0) % MCV 86.2 (80.0-98.0) fL MCH 28.5 (27.0-33.0) pg MCHC 33.0 (31.0-35.0) g/dl RDW 13.2 (11.0-16.0) % Plt Count 327 (160-400) X10*3/uL MPV 9.4 (9.4-12.3) fL Immature Gran % (Auto) 0.2 (0.0-0.4) % Neut % (Auto) 72.4 (45-73) % Lymph % (Auto) 20.2 (20-40) % [place] % (Auto) 6.5 (2-11) % Eos % (Auto) 0.2 (0-4) % Baso % (Auto) 0.5 (0-2) % Lymph # (Auto) 1.2 (1.2-4.9) X10*3/uL [place] # (Auto) 0.4 (0.1-1.2) X10*3/uL Eos # (Auto) 0.0 (0.0-0.4) X10*3/uL Baso # (Auto) 0.0 (0.0-0.2) X10*3/uL Abs Immat Gran (auto) 0.01 (0.00-0.03) X10*3/uL Absolute Neuts (auto) 4.4 (2.0-8.3) x10*3/uL Absolute Nucleated RBC 0.000 (0.0-0.012) X10*3/uL Nucleated RBC % (auto) 0.0 (0.0-0.2) /100WBC Sodium 141 (135-145) mmol/L Potassium 3.5 D (3.3-5.1) mmol/L Chloride 107 (96-108) mmol/L Carbon Dioxide 23 (22-29) mmol/L Anion Gap 15 (12-20) BUN 12 (9-16) mg/dL Creatinine 0.83 (0.5-1.4) mg/dL Estim Creat Clear Calc 52.3 Estimated GFR > 60 Random Glucose 173 H (60-115) mg/dL Calcium 9.7 (8.4-10.2) mg/dL Magnesium 1.9 (1.6-2.6) mg/dL Total Bilirubin 0.4 (0.0-1.0) mg/dL AST 17 (5-31) U/L ALT 18 (0-31) U/L Alkaline Phosphatase 78 (39-117) U/L Troponin I High Sens < 2.7 (<3.5-17.0) ng/L Total Protein 7.4 (6.5-8.0) g/dL Albumin 4.5 (3.5-5.0) g/dL Discharge Plan Discharge Clinical Impression: Abdominal pain Patient Disposition: Left W/O Completing Treatment Prescriptions: No Action metformin 500 mg tablet 500 mg PO BID 14 Days Qty: 28 0RF atorvastatin 10 mg tablet 10 mg PO DAILY aspirin 81 mg tablet,delayed release (DR/EC) 81 mg PO DAILY mirtazapine 30 mg tablet 30 mg PO BEDTIME cyanocobalamin (vitamin B-12) 1,000 mcg Lozenge 1,000 mcg SUBLINGUAL DAILY Qty: 90 4RF ascorbic acid (vitamin C) [Vitamin C] 500 mg Tablet 500 mg PO DAILY Qty: 90 3RF ferrous sulfate 325 mg (65 mg iron) Tablet 325 mg PO DAILY Qty: 90 3RF Discharge Date/Time: 07/23/25 18:34
--- NOTE | 2025-07-23 12:20 | ECG_ITS ---
Test Reason : DIZZY Blood Pressure : */* mmHG Vent. Rate : 75 BPM Atrial Rate : 75 BPM P-R Int : 116 ms QRS Dur : 78 ms QT Int : 328 ms P-R-T Axes : 55 22 27 degrees QTcB Int : 366 ms Normal sinus rhythm Nonspecific T wave abnormality Abnormal ECG When compared with ECG of 18-Jul-2003 08:12, No significant change was found Referred By: Raina De La Garza Electronically Signed By: MUMTAZ OLIVEIRA
[2025-07-23 12:39] LABS: MANUAL DIFF FLAG NO
[2025-07-23 12:45] LABS: Hematocrit 31.8 % (37.0-47.0); Hemoglobin 10.5 g/dl (12.0-16.0); Imm Gran Abs Auto 0.01 X10*3/uL (0.00-0.03); Imm Gran Pct Auto 0.2 % (0.0-0.4); Lymphocytes Absolute Auto 1.2 X10*3/uL (1.2-4.9); Mean Corpuscular HGB Conc 33.0 g/dl (31.0-35.0); Mean Corpuscular Hemoglobin 28.5 pg (27.0-33.0); Mean Corpuscular Volume 86.2 fL (80.0-98.0); NRBC Abs Auto 0.000 X10*3/uL (0.0-0.012); NRBC Pct Auto 0.0 /100WBC (0.0-0.2); Platelet Count 327 X10*3/uL (160-400); Red Blood Count 3.69 X10*6/uL (4.20-5.50); White Blood Count 6.0 X10*3/uL (4.8-10.8)
[2025-07-23 12:57] LABS: Alanine Aminotransferase 18 U/L (0-31); Albumin Level 4.5 g/dL (3.5-5.0); Alkaline Phosphatase 78 U/L (39-117); Anion Gap 15 (12-20); Aspartate Amino Transferase 17 U/L (5-31); Blood Urea Nitrogen 12 mg/dL (9-16); Calcium 9.7 mg/dL (8.4-10.2); Carbon Dioxide 23 mmol/L (22-29); Chloride 107 mmol/L (96-108); Creatinine Clr Calc Pharmacy 52.3; Estimated Glomerular Filt Rate > 60; Magnesium 1.9 mg/dL (1.6-2.6); Potassium 3.5 mmol/L (3.3-5.1); Sodium 141 mmol/L (135-145); Total Protein 7.4 g/dL (6.5-8.0)
[2025-07-23 13:04] LABS: Troponin-I High Sensitivity < 2.7 ng/L (<3.5-17.0)
--- OUTSIDE RECORDS SUMMARY | 2025-07-23 15:22 | XMS_ITS | Encounter Summary ---
Author Organization [employer] Address [address] [facility] [address] [place] [address] Care Team Providers Care Bioprocessing Manufacturing Technician Name Role Phone Anna Magallanes MD Primary Care Provider + Encounter Details Date Type Department Care Team (Late st Contact Info) Description 05/19/2025 Orders Only [facility] [address] [place] [address] Tia Alejandre FNP [address] [place] [address] Social History Tobacco Use Types Packs/Day Years [...] AM EDT documented as of this encounter Progress Notes * Grisel Yousif CNM - 05/19/2025 8:56 AM EDT Pelvic floor PT might help. [facility] offers this, as does [facility]. You could also refer to [facility] * Grisel Yousif CNM - 05/19/2025 8:56 AM EDT Put in referral to urogyn or physical therapy. If physical therapy, specify pelvic floor in comments documented in this encounter Plan of Treatment Upcoming Encounters Date Type Department Care Team (Late st Contact Info) Description 09/21/2025 2:30 PM EST Office Visit [facility] [address] [place] [address] Angélica Marmolejo, OD [address] [place] [address] documented as of this encounter Visit Diagnoses Not on filedocumented in this encounter Additional Health Concerns Assessment Noted Time PHQ-9 Depression Total Score: 5 04/28/20 12:31 PM EDT documented as of this encounter Care Teams Bioprocessing Manufacturing Technician Relationship Specialty Start Date End Date Anna Magallanes MD [address] [place] [id number] PCP - General Internal Medicine 08/15/22 documented as of this encounter
--- OUTSIDE RECORDS SUMMARY | 2025-07-23 15:22 | XMS_ITS | Clinical Summary ---
Author Organization [employer] Address [address] [place] [address] Care Team Providers Care Grades 9 12 Tutor Name Role Phone Anna Magallanes MD Primary Care Provider + Allergies No known active allergies Medications * This document contains information received from the source organization and may not represent a complete record from that organization. Alcohol Swabs (Easy Touch Alcohol Prep Medium) 70 % padsIndications:Typ e 2 diabetes mellitus without complication, without long-term current use of insulin ([facility]) USE TWICE DAILY 100 each 3 Active TRUEplus Lancets 33G miscIndications:Typ e 2 diabetes mellitus without complication, without long-term current use of insulin ([facility]) TEST BLOOD SUGAR TWICE DAILY 100 each 3 Active metFORMIN (Glucophage) 500 MG tabletIndications:T ype 2 diabetes mellitus without complication, without long-term current use of insulin ([facility]) TAKE 1 TABLET BY MOUTH TWICE DAILY IN THE MORNING AND IN THE EVENING WITH MEALS 180 tablet 3 5 Active mirtazapine (Remeron) 30 MG tabletIndications:D epressive disorder TAKE 1 TABLET BY MOUTH EVERY DAY BEFORE BEDTIME 90 tablet 3 5 Active glucose blood (FREESTYLE LITE) test strip TEST BLOOD SUGAR TWICE DAILY 50 strip 5 5 Active atorvastatin (Lipitor) 10 MG tabletIndications:H yperlipidemia, unspecified hyperlipidemia type Take 1 tablet (10 mg) by mouth at bedtime. 90 tablet 3 5 Active citalopram (CeleXA) 10 MG tabletIndications:C urrent moderate episode of major depressive disorder, unspecified whether recurrent (CMS/HCC) (HCC) Take 1 tablet (10 mg) by mouth Once per day. 90 tablet 3 5 04/28/20 26 Active lisinopril 5 MG tabletIndications:P rimary hypertension Take 1 tablet (5 mg) by mouth Once per day. 90 tablet 3 5 04/28/20 26 Active Active Problems Problem Noted Date Diagnosed Date Painful urination 03/31/2025 Prolapsed uterus 03/31/2025 Chronic bilateral lower abdominal pain Current moderate episode of major depressive disorder (CMS/HCC) 02/28/2025 Assessment & Plan (02/28/2025 4:18 PM EDT): Extensive counseling done today I called [facility] services will be in place I added to her medication citalopram 10 mg and I advised to follow-up with PCP Primary hypertension 10/13/2024 Assessment & Plan (02/28/2025 4:18 PM EDT): I advise low-sodium diet, I decided today to increase her list lisinopril to 5 mg daily Follow up with the Nurse for blood pressure check in 2 weeks. Continue with a low sodium diet and regular exercise as tolerated. For BP > or = to 140/90 (or 130/80 for diabetic patients) increase Lisinopril to 10 mg once a day Assessment & Plan (12/21/2024 3:44 PM EDT): Probably mostly controlled. Compliant w/meds Continue lisinopril 2.5 mg counseled re low salt diet/increase moderate physical activity. Check home BP BIW and prn CP/GARY/OSORIO Non smoking patient. Follow-up with me in 3 months Assessment & Plan (10/13/2024 4:32 PM EST): New onset, start Lisinopril 2.5 mg FU in 3-4 weeks. Breast pain, left 06/17/2024 Assessment & Plan (06/17/2024 1:13 PM EDT): Probably muscular, will take Tylenol prn. Will do left breast US to rule out all the pathologies. Pre-syncope 08/29/2023 Assessment & Plan (11/21/2023 9:33 AM EDT): No further episodes I explained it could be related to fluctuating BS levels, watch for hypoglycemia Counseled for tighter control of DM Assessment & Plan (08/29/2023 2:00 PM EST): Order labs and CT scan of the brain Counseled regarding tight control of DM and HTN Counseled to go to ED if Sx repeat Cont Aspirin for now Encounter for preventive health examination 12/2023 Assessment & Plan (08/29/2023 2:01 PM EST): Discussed with patient re increase fresh fruit and vegetable intake. Counseled re moderate exercise as tolerated, up to 20min/d Patient feels safe at home. PAP smear up to date, next next one due 12/2023 Mammogram up to date next one due on 05/2024 Bone density test up to date, next one due 04/2025 Eye exam up to date next one due october 2023 CRC screen decline colonoscopy. Agreed for cologaurd Lipids/FBS to be ordered Vaccinations agreed to PCV 20. Decline Covid and flu IZ Dental visit overdue, recommended to have dental appointment JONNY Encounter for colorectal cancer screening 2023 Screening mammogram for breast cancer 05/09/2023 HPV in female 02/12/2023 Assessment & Plan (06/17/2024 1:14 PM EDT): Resolved. Will do pap smears next year. Pt agreed to have STI testing. Pt does not have a sexual partner at this time. Assessment & Plan (08/29/2023 2:00 PM EST): Recent. she had coloscopy more than 5 yrs ago Repeat PAP/HPV next yr and will fu from there Assessment & Plan (02/12/2023 9:59 AM EDT): PAP smear otherwise is normal, colposcopy done 3 years ago repeat pap in 1 year Bone disease 01/24/2023 Overview (01/24/2023): Ro osteoporosis At high risk for osteoporosis 12/20/2022 Assessment & Plan (12/20/2022 12:40 PM EDT): Order bone density test Pelvic pain 12/20/2022 Assessment & Plan (12/20/2022 12:40 PM EDT): order Pelvic US Anemia 11/21/2022 Assessment & Plan (10/13/2024 4:31 PM EST): Hemoglobin is stable, she is followed by Hematology. Continue Iron + B12 supplementation. Colorectal CA screening UTD. Assessment & Plan (11/21/2023 9:34 AM EDT): See by Hemoglobin has been stable and she will continue to FU No Tx needed at this time, she completed iron supplementation this month Assessment & Plan (08/29/2023 1:59 PM EST): Check Hemoglobin and ferritin levels Check CBC Pt decline colonoscopy referral Assessment & Plan (02/12/2023 12:01 PM EDT): Hemoglobin seems to be stable around 10, seen by hematology, inital workup for celiac disease was negative, vitamin defeiciencies, MM, etc. FU with hematology in 3 months Pt has never had colonoscopy will discuss again about it at next appointment Assessment & Plan (12/20/2022 12:41 PM EDT): no apparent cause, reportedly normal colonoscopy last year refer to hematology Assessment & Plan (11/21/2022 2:42 PM EDT): Mild. Pt is not menstruating for more than 5 years now, addressed the issue of needing a colonoscopy but she refuses at this time, due to bad experience with her mother after colonoscopy. Cologaurd last year was reportedly normal Will repeat anemia studies next month and decide referral to hematology, fu with me in 1 month with labs televisit Primary osteoarthritis of both knees 08/15/2022 Assessment & Plan (04/28/2024 3:20 PM EDT): Significantly improved She will re consult prn Assessment & Plan (08/29/2023 1:59 PM EST): Pt has limitation for ADL's and needs some assistance, Will refer to career development directorsubstation manager to evaluate for home care probably 1-2 hr per day max Assessment & Plan (05/09/2023 2:20 PM EDT): Partial improvement sp PT Continue Tylenol/ibuprofen prn Recommended acupuncture clinic Refer to orthopedics, agreed to steroid injection Assessment & Plan (08/15/2022 10:00 AM EST): No effusion. Refer to PT Order Xyrays of both knees and counseled to go to acupuncture. Primary osteoarthritis of both hands 08/15/2022 Assessment & Plan (08/15/2022 10:01 AM EST): Has Eberden's nodes, no tenosynovitis. Take tylenol prn, topical creams Anxiety 08/14/2022 Depressive disorder 08/14/2022 Assessment & Plan (02/20/2024 9:25 AM EDT): We discussed about setting limits with family members,, she will talk with her brother re using the living room only to sleep, cooking his own meals etc. She will leave up to her daughter re the care of her grandchild, We discussed re med management, possibly to re start SSRI. She will continue Remeron only and will fu wt next appt I will refer her to adult day programs. Assessment & Plan (08/15/2022 10:02 AM EST): On Remeron at bedtime only Not taking topamax or SSRIs previously prescribed. Feels safe at home FU at future visits Generalized arthritis 08/14/2022 Hyperlipidemia 08/14/2022 Assessment & Plan (11/21/2023 9:34 AM EDT): LDL is at goal, continue atorvastatin Continue lifetime modifications Recommended moderate amount of exercise and increase consumption of fruit, vegetables, fish and high fiber foods. Should decrease consumption of highly saturated fats or trans fats. Assessment & Plan (02/12/2023 12:07 PM EDT): Lipds are at goal, continue low dose atorvastatin tight contol of DM We discussed re rx options. She wants to be more strict with life style modifications. Recommended moderate amount of exercise and increased consumption of fruit, vegetables, fish and high fiber foods. We discussed about avoiding consumption of highly saturated fats or trans fats. FU lipids in 6m Assessment & Plan (08/15/2022 10:03 AM EST): We discussed re rx options. She wants to be more strict with life style modifications and continue using atorvastatin. Recommended moderate amount of exercise and increased consumption of fruit, vegetables, fish and high fiber foods. We discussed about avoiding consumption of highly saturated fats or trans fats. Check lipids Type 2 diabetes mellitus without complication Assessment & Plan (02/28/2025 4:17 PM EDT): Improved today's A1c is 6.6 advised to be adherent to diabetic diet continue with same interventions and follow-up with PCP Assessment & Plan (10/13/2024 4:30 PM EST): Controlled. Continue on Metformin. Counseled re more frequent low calorie/carb meals. Check fgstk 1 X daily Encouraged physical activity as tolerated. No evidence of DM neuropathy. She declined Influenza Immunization today. Assessment & Plan (06/17/2024 1:15 PM EDT): Will check A1C with next set of labs, it is probably uncontrolled. Continue Metformin 500 mg BID and fu in 3 months. Assessment & Plan (02/20/2024 9:22 AM EDT): Controlled. A1c is at goal. Continue on metformin bid Counseled re more frequent low calorie/carb meals. Check fgstk 1x daily Encouraged physical activity as tolerated. FU in 3 months. Assessment & Plan (11/21/2023 9:33 AM EDT): A1c is trending up Continue Metformin 500mg BID, refer to mirror installer Counseled re more frequent low calorie/carb meals. Check fgstk daily Encouraged physical activity as tolerated. FU in 3-4 months. Assessment & Plan (08/29/2023 1:59 PM EST): Controlled A1c at goal and medication is Metformin once /day FU 3 m Assessment & Plan (05/09/2023 2:21 PM EDT): Controlled. A1c is at goal. Continue on metformin same dose Counseled re more frequent low calorie/carb meals. Check fgstk 1x daily Encouraged physical activity as tolerated. FU in 3-4 months. Assessment & Plan (02/12/2023 12:03 PM EDT): lately uncontrolled, most likely due to being out of medications. Pt to continue metformin 500 BID and FU in 3 months Counseled re more frequent low calorie/carb meals. Encouraged physical activity as tolerated. patient does not have microalbuminuria Routine eye exam up to date. Lipids up to date. Assessment & Plan (11/21/2022 2:43 PM EDT): Controlled a1c is at goal. Continue metformin BID Counseled re more frequent low calorie/carb meals. Check fgstk daily Encouraged physical activity as tolerated. FU at next appointment. Assessment & Plan (08/15/2022 10:02 AM EST): Fairly controlled. A1c is at goal. Continue on metformin 500mg bid Counseled re more frequent low calorie/carb meals. Check fgstk 1x daily Encouraged physical activity as tolerated. Order labs and refer to optometry for routine evaluation FU in 3 months. 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 Will repeat PAP Smear this yr and fu w/ me Assessment & Plan (12/20/2022 12:41 PM EDT): PAP smear done today will FU at next appointment, repeat in 5 years if today's is normal. no concern for domestic violence counseled regarding STI prvention, use of condoms. Pt is not sexually active at this time. Encounters Date Type Department Care Team Description 07/20/2025 3:40 PM EST Office Visit [facility] [address] [place] [address] [phone] Anmol Nicole MD Dizziness (Primary Dx); Epigastric discomfort 07/20/2025 Travel 07/15/2025 [place] [address] Anna Magallanes MD Telephone Call 07/11/2025 Patient Outreach [address] [phone] Anna Magallanes MD Care Coordination ([facility] outreach for SDOH PT-1 and food needs-referral completed /) 07/11/2025 Patient Outreach [address] [phone] Anna Magallanes MD Pre-visit Planning (SDOH screening negative and tobacco screening negative) 06/28/[address] [phone] Anna Magallanes MD Housing Form (I called the patient, regarding a reasonable accommodation from [employer]. She is requesting to be allowed to keep an emotional support dog. I informed her that her PCP denied the request. She stated that she will hot die picker the form at [facility], and will take it to her psych provider, to ask if it may be completed by them.///) 06/10/[address] [phone] Anna Magallanes MD Change PCP 06/02/[address] [phone] Anna Magallanes MD Housing Form (I called the patient, regarding a reasonable accommodation from [employer]. She is requesting to be allowed to keep an emotional support dog. I informed her that her PCP denied the request. She stated that she has an appointment with her behavioral health provider this afternoon, and will take the form to them for completion. She will hot die picker the form at [facility], before her appointment.) 05/19/2025 Orders Only [facility] [address] [place] [phone] Lucho Alejandree, CONRADO 04/28/2025 12:15 PM EDT Office Visit [facility] [address] [place] [phone] Anna Magallanes MD Current moderate episode of major depressive disorder, unspecified whether recurrent (CMS/HCC); Primary hypertension 04/28/2025 Telephone [facility] [address] [place] [phone] Anna Magallanes MD referral follow up 04/28/2025 Travel 04/27/2025 Telephone [facility] [address] [place] [address] Anna Magallanes MD chart prep from Last 3 Months Immunizations Immunization Administration Dates Next Due Pneumococcal Conjugate PCV 20 08/29/2023 Tdap 02/12/2023 Family History Medical History Relation Name Comments COPD Brother COPD Father Hx HTN. at age 72 CAD Mother Relation Name Status Comments Brother Father Mother Social History Tobacco Use Types Packs/Day Years Used Date Smoking Tobacco: Never Passive Smoke Exposure: Never Smokeless Tobacco: Never Tobacco Cessation:Counseling Given: Not Answered Alcohol Use Standard Drinks/Week Comments Never 0 [...] Orientation Straight 06/24/2022 10 :15 AM EDT Last Filed Vital Signs Vital Sign Reading [...] Mass Index 22.3 07/20/2025 3:36 PM EST Plan of Treatment Upcoming Encounters Date Type Department Care Team (Late st Contact Info) Description 09/21/2025 2:30 PM EST Office Visit [facility] [address] [place] [address] [phone] Angélica Marmolejo OD [address] [place] [address] Health Maintenance Due Date Last Done Comments CT Colonography 1960 Colonoscopy 1960 FIT 1960 Sigmoidoscopy 1960 Zoster Vaccines (1 of 2) 2012 FOBT 09/15/2024 09/15/2023 Cervical Cancer Screening 04/13/2025 HPV/Cotest 04/13/2025 04/13/2024, 05/0 10/2022, 12/20/2022, Additional history exists Pap Smear 04/13/2025 04/13/2024, 050 10/2022, 12/20/2022 COVID-19 Vaccine ( season) 2025 Influenza Vaccine (#1) 2025 Mammogram 07/07/2025 07/07/2024, 04/26, 05/19/2023, Additional history exists Diabetes: Urine Protein Screening 08/23/2025 08/23/2024, 08/23/2024, 10/01/2023, Additional history exists Lipid Panel 08/23/2025 08/23/2024, 02/2024, 10/23/2022 Diabetes: Hemoglobin A1C 08/31/2025 025, 10/13/2024, 02/20/2024, Additional history exists Diabetes: Foot Exam 10/13/2025 10/13/2024, 10/13/2024, 10/13/2024, Additional history exists Alcohol/Substance Use Screening 02/28/2026 02/28/2025 Disability Screening 02/28/2026 02/28/2025 Depression Screening 04/28/2026 04/28/2025, 04/28/20 Eye Exam 06/18/2026 06/18/2024, 05/26, 06/18/2024, Additional history exists SDOH Screening 07/11/2026 07/11/2025 Tobacco Screening 07/20/2026 07/20/2025 Colorectal Cancer Screening 09/15/2026 FIT DNA/Cologuard 09/15/2026 09/15/2023 DTaP/Tdap/Td Vaccines (2 - Td or Tdap) 02/12/2033 02/12/2023 RSV Patients and Patients Aged 60 years or older (1 - 1-dose 75+ series) 2037 Pneumococcal Vaccine: 50+ Years Completed 08/29/2023 Hepatitis C Screening Completed 10/01/2023 HIV Screening Completed 08/23/2024 HIB Vaccines Aged Out No longer eligi ble based on patient's age to complete this topic HPV Vaccines Aged Out No longer eligi ble based on patient's age to complete this topic Hepatitis A Vaccines Aged Out No long er eligible based on patient's age to complete this topic Hepatitis B Vaccines Aged Out No long er eligible based on patient's age to complete this topic IPV Vaccines Aged Out No longer eligi ble based on patient's age to complete this topic Meningococcal B Vaccine Aged Out No l onger eligible based on patient's age to complete this topic Meningococcal Vaccine Aged Out No marty chi eligible based on patient's age to complete this topic RSV under 20 months Aged Out No longe r eligible based on patient's age to complete this topic Rotavirus Vaccines Aged Out No longer eligible based on patient's age to complete this topic Goals Goal Patient Goal Type Associated Problems Recent Progress Patient-Stated? Author Help patients manage their type 2 diabetes Care Plan Help patients manage their type 2 diabetes Heidi Sullivan Weekly blood pressure task Care Plan Weekly blood pressure task No Heidi Yepez Help patients manage their type 2 diabetes Care Plan Help patients manage their type 2 diabetes Heidi Sullivan Patient has chronic kidney disease Care Plan Patient has chronic kidney disease Heidi Sullivan Weekly blood pressure task Care Plan Weekly blood pressure task No Heidi Yepez Patient has chronic kidney disease Care Plan Patient has chronic kidney disease Heidi Sullivan Weekly blood pressure task Care [...] Plan Weekly blood pressure task No Renae Aylaa [place] Patient has chronic kidney disease Care Plan Patient has chronic kidney disease No Renae Ayala [place] Patient has chronic kidney disease Care Plan Patient has chronic kidney disease No Renae Ayala MA Procedures Procedure Name Priority Date/Time Associated Diagnosis Comments POCT GLYCATED HEMOGLOBIN, TOTAL Routine 02/28/2025 10:37 AM EDT Type 2 diabetes mellitus without complication, without long-term current use of insulin (CMS/HCC) HIV 1/2 ANTIGEN/ANTIBODY, FOURTH GENERATION W/RFL Routine 08/23/2024 10:01 AM EST HPV in female ALBUMIN, RANDOM URINE W/CREATININE Routine 08/23/2024 9:45 AM EST Type 2 diabetes mellitus without complication, without long-term current use of insulin (CMS/HCC) LIPID PANEL WITH REFLEX TO DIRECT LDL Routine 08/23/2024 9:45 AM EST Type 2 diabetes mellitus without complication, without long-term current use of insulin (CMS/HCC) BI US BREAST LIMITED LEFT Routine 07/07/2024 1:00 PM EST HPV MRNA E6/E7 REFLEX TO HPV 16, 18/45 Routine 04/13/2024 12:21 PM EDT Cytologic evidence of malignancy on smear of cervix [employer] PAP Routine 04/13/2024 12:21 PM EDT HEPATITIS PANEL, GENERAL Routine 10/01/2023 10:08 AM EST Encounter for preventive health examination LAB COLOGUARD COLON CANCER SCREEN Routine 09/15/2023 4:26 PM EST Encounter for colorectal cancer screening from Last 3 Months or Most Recently Relevant to Health Maintenance Results * (ABNORMAL) POCT HGB A1C (02/28/2025 10:37 AM EDT) [facility] Hemoglobin A1C 6.6(A) 4.0 - 5.7 % QC Media Lot # [id number] Lot# Expiration Date ,[id number] Blood 02/28/2025 10:3 7 AM EDT us Gisel Esposito MD POINT OF CARE TEST EN TER/EDIT ORDERABLES Final Result * HIV-1/2 Antigen and Antibodies, Fourth Generation, with Reflexes (08/23/2024 10:01 AM EST) [facility] HIV AB/AG Nonreactive Nonreactive [facility] Comment:HIV-1 p24 Ag and/or HIV-1/HIV-2 Ab not detected.A test result that is nonreactive does not exclude thepossibility of exposure to or infection with HIV-1 and/orHIV-2. Nonreactive results in this assay for individualswith prior exposure to HIV-1 and/or HIV-2 may be due toantigen and antibody levels that are below the limit ofdetection of this assay.The [employer] HIV Ag/Ab Combo assay result andsupplemental assay results should be interpreted inconjunction with the patient's clinical presentation,history and other laboratory results. If the results areinconsistent with clinical evidence, additional testing issuggested to confirm the result. Blood Venous blood specimen / Unknown 08/23/2024 10:01 AM EST 08/23/2024 11:10 AM EST us Anna Magallanes MD LAB BLOOD ORDERABLES Fin al Result [facility] [address] [place] [phone] [phone] * Lipid Panel with Reflex to Direct LDL (08/23/2024 9:45 AM EST) Triglycerides 82 <150 mg/dL [facility] Comment:Desirable Triglyceri de: less than 150 mg/dLBorderline High Triglyceride 150-199 mg/dLHigh Triglyceride: 200-499 mg/dLVery High Triglyceride: greater than or equal to 5OO mg/dL Cholesterol 157 <200 mg/dL [facility] Comment:Desirable Cholestero l: less than 200 mg/dLBorderline High Cholesterol: 200-239 mg/dLHigh Cholesterol: greater than 239 mg/dL LDL Cholesterol Calculated 87 <100 mg/dL [facility] Comment:Desirable LDL: less than 100 mg/dLNear Optimal/Above Optimal LDL: 110- 129 mg/dLBorderline High LDL: 130-159 mg/dLHigh LDL: 160-189 mg/dLVery High LDL: greater than or equal to 190 mg/dL HDL Cholesterol 54 >40 mg/dL [facility] Comment:Desirable HDL: great er than 40 mg/dL Note: This HDL assay may give artificially low results in patients with liver disease. Blood 08/23/2024 9:45 AM EST 08/23/2024 11:10 AM EST us Anna Magallanes MD LAB BLOOD ORDERABLES Fin al Result [facility] [address] [place] [phone] * Albumin, Random Urine W/Creatinine (08/23/2024 9:45 AM EST) Creatinine, Urine 177.98 mg/dL [facility] Microalbumin Urine 12.0 mg/L [facility] Microalbum Creatinine Ratio Ur 6.7 <30 ug/mg cr [facility] Comment:Albumin/Creatinine R atio Reference Ranges: Normal: < 30 ug/mg creatinine Microalbuminuria: 30 - 300 ug/mg creatinineClinical Albuminuria: > 300 ug/mg creatinine Urine (Urine, Random) 08/23/2024 9:45 AM EST 08/23/2024 11:04 AM EST us Anna Magallanes MD LAB URINE ORDERABLES Fin al Result [facility] [address] [place] [address] [phone] * BI US Breast Limited Left (07/07/2024 1:00 PM EST) Anatomical Region Laterality Modality Breast Left Ultrasound 07/07/2024 1:00 PM EST Narrative 07/07/2024 1:14 PM EST [facility] [address] [place] [address] Ultrasound Report Signed Patient: Gisel Johnston MR#: [id number] : 1960 Acct:[id number] Age/Sex: 64 / F ADM Date: 07/07/24 Loc: HO.MAMMO Attending Dr: Anna Magallanes MD Ordering Physician: Anna Magallanes MD Date of Service: 07/07/24 Procedure(s): US breast LT limited mamm only Accession Number(s): [id number] cc: Anna Magallanes MD EXAMINATION: US DIAGNOSTIC ULTRASOUND BREAST, LEFT CLINICAL INFORMATION: 64-year-old female complaining of upper left breast pain. No palpable abnormality. Negative mammography 05/20/2024. COMPARISON: Mammography 05/20/2024, 05/19/2023. TECHNIQUE: Ultrasound of the left breast is performed with real-time torres scale imaging and color Doppler. Attention was given to the 9:00 to the 3:00 axis to include the area of reported pain. FINDINGS: There is no focal suspicious finding. There is no solid mass, architectural abnormality, abnormal shadowing, cystic abnormality, or edema in the soft tissue planes. Only normal fatty breast tissue is identified. No correlate to the region of pain. US/US breast LT limited mamm only IMPRESSION: No findings suspicious for malignancy. -No imaging correlate identified to explain superior left breast pain. Recommend clinical management and follow-up. Otherwise, recommend resuming routine annual screening mammography. ASSESSMENT: BI-RADS 1: Negative RECOMMENDATION: 1. Patient should be managed based on the clinical impression. 2. Otherwise, routine annual screening mammography. Electronically signed by: Junior Monsalve MD 07/07/2024 01:10 PM EST RP Dictated By: Junior Monsalve MD Signed By: <Electronically signed by Junior Monsalve MD in OV> 07/07/24 1310 DD/ 1300 TD/TT: 07/07/24 1302 Wine Fermenter: Procedure Note Donotuseinterpreter, Image - [facility]07/[facility] [address] [place] [address] Ultrasound Report Signed Patient: David Johnston#: [id number] : [id number]:[id number] Age/Sex: 64 / FADM Date: 07/07/24 Loc: HO.MAMMO Attending Dr: Anna Magallanes MD Ordering Physician: Anna Magallanes MD Date of Service: 07/07/24 Procedure(s): US breast LT limited mamm only Accession Number(s): [id number] cc: Anna Magallanes MD EXAMINATION: US DIAGNOSTIC ULTRASOUND BREAST, LEFT CLINICAL INFORMATION: 64-year-old female complaining of upper left breast pain. No palpable abnormality. Negative mammography 05/20/2024. COMPARISON: Mammography 05/20/2024, 05/19/2023. TECHNIQUE: Ultrasound of the left breast is performed with real-time torres scale imaging and color Doppler. Attention was given to the 9:00 to the 3:00 axis to include the area of reported pain. FINDINGS: There is no focal suspicious finding. There is no solid mass, architectural abnormality, abnormal shadowing, cystic abnormality, or edema in the soft tissue planes. Only normal fatty breast tissue is identified. No correlate to the region of pain. US/US breast LT limited mamm only IMPRESSION: No findings suspicious for malignancy. -No imaging correlate identified to explain superior left breast pain. Recommend clinical management and follow-up. Otherwise, recommend resuming routine annual screening mammography. ASSESSMENT: BI-RADS 1: Negative RECOMMENDATION: 1. Patient should be managed based on the clinical impression. 2. Otherwise, routine annual screening mammography. Electronically signed by: Junior Monsalve MD 07/07/2024 01:10 PM EST RP Dictated By: Junior Monsalve MD Signed By: <Electronically signed by Junior Monsalve MD in OV> 07/07/24 1310 DD/ 1300 TD/TT: 07/07/24 1302 Wine Fermenter: us Anna Magallanes MD IMG US PROCEDURES Final Result * ThinPrep Imaging System Pap (04/13/2024 12:21 PM EDT) SOURCE: SEE NOTE [facility] Comment:Cervix Report Status: [facility] Clinical Information: SEE NOTE [facility] Comment:None given LMP: SEE NOTE [facility] Comment:NONE GIVEN Prev. PAP: SEE NOTE [facility] Comment:NONE GIVEN Prev. BX: SEE NOTE [facility] Comment:NONE GIVEN Statement Of Adequacy: SEE NOTE [facility] Comment:Satisfactory for reji luation.Endocervical/transformation zone componentpresent. General Categorization: [facility] Interpretation/Result: SEE NOTE [facility] Comment:Cytology Results: Ne gative for intraepitheliallesion or malignancy. Cytology Comment SEE NOTE [facility] Comment:This Pap test has be en evaluated with computerassisted technology. Muleser: SEE NOTE [facility] Comment:DMM, CT(ASCP)CT scre ening location: [place] [address] Review Muleser: [facility] Pathologist [facility] PAP Infection [facility] See Note SEE NOTE [facility] Comment:EXPLANATORY NOTE:The Pap is a screening test for cervical cancer. It isnot a diagnostic test and is subject to false negativeand false positive results. It is most reliable when asatisfactory sample, regularly obtained, is submittedwith relevant clinical findings and history, and whenthe Pap result is evaluated along with historic andcurrent clinical information.THIS TEST WAS PERFORMED AT:[facility] [address] [id number] PAUL MD 04/13/2024 12:2 1 PM EDT 04/13/2024 4:57 PM EDT Narrative [facility] - 04/16/2024 3:11 PM EDT SEE SCANNED RESULTS IN EMR Anna Magallanes MD LAB PATHOLOGY ORDERABLES Final Result [facility] [address] [place] [address] [phone] * HPV mRNA E6/E7 w/Reflex to HPV Genotypes 16, 18/45 (04/13/2024 12:21 PM EDT) HPV nRNA E6/E7 NOT DETECTED [facility] Comment:REFERENCE RANGE: Not DetectedMethodology: Visual Associate-Mediated AmplificationThis assay detects E6/E7 viral messenger RNA (mRNA) from 14high- risk HPV types(16,18,31,33,35,39,45,51,52,56,58,59,66,68).Cervical sources are required for HPV testing.If a vaginal source from a patient who has had atotal hysterectomy with removal of cervix wassubmitted, please contact the testing laboratoryfor alternative testing options.For additional information, please refer tohttp://education.Zones/faq/IVR937w4(This link if provided for information/educational purposes only.)THIS TEST PERFORMED AT:[employer] [address] [phone] DIRECTOR: NICK PAUL MD HPV mRNA E6/E7 TNP [facility] HPV 16 RNA TNP [facility] HPV 18/45 RNA TNP [facility] Vaginal Fluid Cervix uteri structure / Unknown 04/13/2024 12:21 PM EDT 04/13/2024 4:58 PM EDT Narrative [facility] - 04/16/2024 3:10 PM EDT Collection Date: [id number] by: LOLY Syed: Cervix Anna Magallanes MD LAB CYTOLOGY ORDERABLES Final Result Performing Organization Address [facility] Co de Phone Number [facility] [address] [place] [phone] * Hepatitis Panel, General (10/01/2023 10:08 AM EST) Hepatitis A IgM Nonreactive Nonreactive [facility] Comment:IgM antibodies to GARY V not detected; does not exclude earlyacute or recovered HAV infection. ~Hepatitis B Surface Antibody REACTIVE Nonreactive [facility] Comment:REACTIVE: > 11.99 mI U/mL Hepatitis B Core Antibody Reactive Nonreactive [facility] Comment:Presumptive evidence of anti-HBc. Hepatitis C Antibody Nonreactive Nonreactive [facility] Comment:Antibodies to HCV no t detected; does not exclude early acuteHCV infection. Hepatitis B Surface Ag Negative Negative [facility] Blood 10/01/2023 10:0 8 AM EST 10/01/2023 11:46 AM EST Anna Magallanes MD LAB BLOOD ORDERABLES Fin al Result Performing Organization Address [facility] Co de Phone Number [facility] [address] [place] [phone] * Cologuard?? colon cancer screening (09/15/2023 4:26 PM EST) Cologuard Result Negative Negative 09/23/19 12:20 AM EST [facility] (CLIA #:[id number]) Comment: NEGATIVE TEST RESULT. A negative Cologuard result indicates a low likelihood that a colorectal cancer (CRC) or advanced adenoma (adenomatous polyps with more advanced pre-malignant features) is present. The chance that a person with a negative Cologuard test has a colorectal cancer is less than 1 in 1500 (negative predictive value >99.9%) or has an advanced adenoma is less than 5.3% (negative predictive value 94.7%). These data are based on a prospective cross-sectional study of 10,000 individuals at average risk for colorectal cancer who were screened with both Cologuard and colonoscopy. (Alisha Junior al, N Engl J Med 2014;370(14):8256-4908) The normal value (reference range) for this assay is negative. COLOGUARD RE-SCREENING RECOMMENDATION: Periodic colorectal cancer screening is an important part of preventive healthcare for asymptomatic individuals at average risk for colorectal cancer. Following a negative Cologuard result, the [place] [employer] and U.S. Multi-Society Task Force screening guidelines recommend a Cologuard re-screening interval of 3 years. References: [place] [employer] Guideline for Colorectal Cancer Screening: https://www.cancer.org/cancer/dzzhw-vpmdem-fgrwlo/lwsfvpjoa-uutwgewgu-npohxtl/ac s-rec ommendations.html.; Paul DK, Jack BAILEY, Florecita LuceroK, Colorectal Cancer Screening: Recommendations for Physicians and Patients from the U.S. Multi-Society Task Force on Colorectal Cancer Screening , Am J Gastroenterology 2017; 112:8127-7234. TEST DESCRIPTION: Composite algorithmic analysis of stool DNA-biomarkers with hemoglobin immunoassay. Quantitative values of individual biomarkers are not reportable and are not associated with individual biomarker result reference ranges. Cologuard is intended for colorectal cancer screening of adults of either sex, 45 years or older, who are at average-risk for colorectal cancer (CRC). Cologuard has been approved for use by the U.S. FDA. The performance of Cologuard was established in a cross sectional study of average-risk adults aged 50-84. Cologuard performance in patients ages 45 to 49 years was estimated by sub-group analysis of near-age groups. Colonoscopies performed for a positive result may find as the most clinically significant lesion: colorectal cancer [4.0%], advanced adenoma (including sessile serrated polyps greater than or equal to 1cm diameter) [20%] or non- advanced adenoma [31%]; or no colorectal neoplasia [45%]. These estimates are derived from a prospective cross-sectional screening study of 10,000 individuals at average risk for colorectal cancer who were screened with both Cologuard and colonoscopy. (Alisha Burnham, N Engl J Med 2014;370(14):0843-6755.) Cologuard may produce a false negative or false positive result (no colorectal cancer or precancerous polyp present at colonoscopy follow up). A negative Cologuard test result does not guarantee the absence of CRC or advanced adenoma (pre-cancer). The current Cologuard screening interval is every 3 years. ([place] [employer] and U.S. Multi-Society Task Force). Cologuard performance data in a 10,000 patient pivotal study using colonoscopy as the reference method can be accessed at the following location: www.opentabs.[employer] Network/results. Additional description of the Cologuard test process, warnings and precautions can be found at www.cologuard.com. Stool specimen (specimen) 09/15/2023 4:26 PM EST 09/16/2023 11:34 AM EST Anna Magallanes MD LAB MOLECULAR DIAGNOSTIC S ORDERABLES Final Result [facility] (CLIA #:[id number]) [address] [place] [address], from Last 3 Months or Most Recently Relevant to Health Maintenance Additional Health Concerns Active Problems Noted Date [...] 07/20/2025 Patient has chronic kidney disease 07/20/2025 Insurance [facility] C3 HSN FULL Care Teams Grades 9 12 Tutor Relationship Specialty Start Date End Date Anna Magallanes MD [address] [place] [phone] PCP - General Internal Medicine 08/15/22
--- OUTSIDE RECORDS SUMMARY | 2025-07-23 15:22 | XMS_ITS | Clinical Summary ---
Author Organization [facility] Address [address] [address] Phone Care Team Providers Care Outsole Paraffiner Name Role Phone Pcp, Unknown Primary Care Provider Unavailabl e Social History Tobacco Use Types Packs/Day Years Used Date Smoking Tobacco: Never Assessed Education Answer Date Recorded Are you interested in more education? Not on dario e 06/27/2025 Are you concerned about learning? Not on file 06/27/2025 No 06/27/2025 No 06/27/2025 Digital Access Answer Date Recorded No 06/27/2025 No 06/27/2025 Reliable internet access at home? Not on file 06/27/2025 Device with a working camera? Not on file Comments Unknown Sex and Gender Information Value Date Recorded Sex Assigned at Not on file Legal Sex Female 10:24 AM EDT Gender Identity Not on file Sexual Orientation Not on file Plan of Treatment Upcoming Encounters Date Type Department Care Team (Late st Contact Info) Description 08/01/2025 3:00 PM EST Office Visit [facility] [address] [place] [address] [place] [address] Jasmin Otoole MD [address] [facility], [address] [place] [address] [email or web address] Health Maintenance Due Date Last Done Comments Adult Td,Tdap Booster 1960 LIPID PANEL 1962 DEPRESSION SCREENING 1974 SMOKING Hx and SMOKELESS TOB ACCO SCREENING 1975 HEPATITIS C SCREENING 1980 HIV ONE-TIME SCREENING (18-6 5 YEARS) 1980 PAP SMEAR 1983 MAMMOGRAM 2002 COLOGUARD 2007 COLONOSCOPY 2007 COLORECTAL CANCER SCREENING 2007 FIT TEST 2007 FOBT 2007 SIGMOIDOSCOPY 2007 VIRTUAL COLONOSCOPY 2007 PNEUMOCOCCAL VACCINES (50+ y ears) (1 of 1 - PCV) 2012 ZOSTER VACCINES (1 of 2) 2012 INFLUENZA VACCINE (#1) 2025 COVID-19 VACCINE (1 - 2024-2 6 season) 2025 RSV VACCINE (1 - 1-dose 75+ series) 2037 HEPATITIS A VACCINES Aged Out No long er eligible based on patient's age to complete this topic HIB VACCINES Aged Out No longer eligi ble based on patient's age to complete this topic MENINGOCOCCAL VACCINES (ACWY) Aged Out No longer eligible based on patient's age to complete this topic MENINGOCOCCAL VACCINES (B) Aged Out N o longer eligible based on patient's age to complete this topic Medical Devices Not on file Insurance C3 ACO [facility] [place] [address] [place] [address] [place] [address] C3 ACO [facility] C3 ACO Care Teams Outsole Paraffiner Relationship Specialty Start Date End Date Pcp, Unknown PCP - General 05/24/25 Additional Source Comments The information contained in this document represents components of the legal health record. It is not the complete legal health record.[facility]
--- OUTSIDE RECORDS SUMMARY | 2025-07-23 15:22 | XMS_ITS | Encounter Summary ---
Author Organization [employer] Address [address] [facility] [address] [place] [address] Care Team Providers Care Chartered Wealth Manager Name Role Phone Anna Magallanes MD Primary Care Provider + Encounter Details Date Type Department Care Team (Latest Contact Info) Description 07/20/2025 Travel Social History Tobacco Use Types Packs/Day Years [...] AM EDT documented as of this encounter Plan of Treatment Upcoming Encounters Date Type Department Care Team (Late st Contact Info) Description 09/21/2025 2:30 PM EST Office Visit [facility] [address] [place], [place] [phone] JaleelAngélica mccauley, OD [address] [place] [address] documented as of this encounter Goals Goal Patient Goal Type Associated Problems Recent Progress Patient-Stated? Author Help patients manage their type 2 diabetes Care Plan Help patients manage their type 2 diabetes No Heidi Yepez Weekly blood pressure task [...] Plan Patient has chronic kidney disease No Lizeth Clint Patient has chronic kidney disease Care Plan [...] Care Plan Patient has chronic kidney disease Renae Reyes [place] Patient has chronic kidney disease Care Plan Patient has chronic kidney disease Renae Reyes [place] documented as of this encounter Visit Diagnoses Not on filedocumented in this encounter Additional Health Concerns Active [...] documented as of this encounter Care Teams Chartered Wealth Manager Relationship Specialty Start Date End Date nAna Magallanes MD [address] [place] [phone] PCP - General Internal Medicine 08/15/22 documented as of this encounter
[2025-07-23 16:11] VITALS: BP 119/76; PULSE 70; RESP 16; TEMP 36.3; O2SAT 100
--- NOTE | 2025-07-23 18:33 | PC.NURSE ---
Pt wanting to leave, pt advised a provider had just picked her up, and to please wait until he could come and see her, emotional support provided to pt, pt noted to wait initially, however did choose to leave ED prior to finishing tx aware, no IV was in place, interp at bedside and had discussed risks with pt initially.
== END 2025-07-23 18:34 | disposition left against medical advice (07) ==
PROVIDERS: Physician Assistant Medical; Emergency Provider Emergency Medicine
DX: R10.22 Pelvic and perineal pain left side (principal); R11.2 Nausea with vomiting, unspecified; R42 Dizziness and giddiness; R94.31 Abnormal electrocardiogram [ECG] [EKG]; Z79.899 Other long term (current) drug therapy
CPT/HCPCS: 36415; 80053; 83735; 84484; 85025; 93005; 99283; 99284

== ENCOUNTER → 2025-07-23 12:20 | Outpatient (BNV) | payer MEDICAID, SELFPAY | PROVIDERS: Emergency Provider Emergency Medicine; Visit Provider Internal Medicine | DX: R94.31 Abnormal electrocardiogram [ECG] [EKG] (principal); R42 Dizziness and giddiness | CPT/HCPCS: 93010 ==

== ENCOUNTER 2025-08-04 11:39 | Outpatient (REF) | payer MEDICAID, SELFPAY ==
--- OUTSIDE RECORDS SUMMARY | 2025-08-01 15:00 | XMS_ITS | Encounter Summary ---
Author Organization [facility] Address [address] [facility] [address] [place] [id number] Phone Care Team Providers Care Radial Drill Press Set Up Operator Name Role Phone Pcp, Unknown Primary Care Provider Unavailabl e Reason for Referral * Consultation (Within 2 weeks) - New Request Specialty Diagnoses / Procedures Referred By Candida llanes Referred To Contact Diagnoses Female genital prolapse, unspecified type Jasmin Otoole MD [address] [facility], [address] [place] [address] Phone: tel: fax: [email or web address] Snow Wnag DO [address] [facility] [address] [place] [address] Phone: tel: Referral ID Status Reason Start Date Expiration Date V isits Requested Visits Authorized [id number] New Request 08/01/2025 08/01/2026 1 1 Reason for Visit * Reason Comments Annual Exam Establish care1-2 ye ars, pap at one of those appointmentMammogram sched 08/04/25 Encounter Details Date Type Department Care Team (Latest Contact Info) Description 08/01/2025 3:00 PM EST Office Visit [facility] [address] [place] [address] [place] [id number] Jasmin Otoole MD [address] [facility], [address] [place] [address] [email or web address] Encounter for gynecological examination without abnormal finding (Primary Dx); Female genital prolapse, unspecified type Social History Tobacco Use Types Packs/Day Years Used Date Smoking Tobacco: Never Smokeless Tobacco: Never Tobacco Cessation:Counseling Given: Not Answered Alcohol Use Standard Drinks/Week Comments Never 0 (1 standard drink = 0.6 oz pur e alcohol) Education Answer Date Recorded Are you interested in more education? Not on dario e 06/27/2025 Are you concerned about learning? Not on file 06/27/2025 No 06/27/2025 No 06/27/2025 Digital Access Answer Date Recorded No 06/27/2025 No 06/27/2025 Reliable internet access at home? Not on file 06/27/2025 Device with a working camera? Not on file Comments No Sex and Gender Information Value Date Recorded Sex Assigned at Not on file Legal Sex Female 10:24 AM EDT Gender Identity Not on file Sexual Orientation Not on file documented as of this encounter Last Filed Vital Signs Vital Sign Reading Time Taken Comments Blood Pressure 104/66 08/01/2025 3:17 PM EST Pulse - - Temperature - - Respiratory Rate - - Oxygen Saturation - - Inhaled Oxygen Concentration - - Weight - - Height - - Body Mass Index - - documented in this encounter Progress Notes * Jasmin Otoole MD - 08/01/2025 3:00 PM EST Clinic Note: Annual Exam Encounter Date: 08/01/2025 Subjective: Gisel Johnston is a 65 y.o. who presents for routine annual exam. No LMP recorded (lmp unknown). Patient is postmenopausal. Last Pap NILM 2023, HPV testing not done, NILM/HPV+ 2022 Last mammo patient unsure, states she has mammogram scheduled at [facility] Negative Cologuard 2023 Review of Systems - General ROS: negative Psychological ROS: negative Hematological and Lymphatic ROS: negative Endocrine ROS: neg hot flash neg sig insomnia Breast ROS: negative for breast lumps Respiratory ROS: no cough, shortness of breath, or wheezing Cardiovascular ROS: no chest pain or dyspnea on exertion Gastrointestinal ROS: no abdominal pain, change in bowel habits, or black or bloody stools Urinary ROS: no dysuria, trouble voiding, or hematuria Vulvovaginal - neg dryness, neg pain, neg bleeding neg unusual discharge Health Maintenance and Preventative Care: There is no immunization history on file for this patient. Obstetric and Gynecologic History OB History Para Term AB Living 3 3 3 0 0 0 SAB IAB Ectopic Multiple Live Births 0 0 0 0 0 # Outcome Date GA Lbr [place]/2nd Weight Sex Type Anes PTL Lv 3 Term 2 Term 1 Term Past Histories: Past Medical History: Diagnosis Date High blood pressure Incomplete uterovaginal prolapse Type 2 diabetes mellitus without complications Past Surgical History: Procedure Laterality Date ENDOMETRIAL BIOPSY History reviewed. No pertinent family history. Social History Socioeconomic History Marital status: Single Spouse name: Not on file Number of children: Not on file Years of education: Not on file Highest education level: Not on file Occupational History Not on file Tobacco Use Smoking status: Never Smokeless tobacco: Never Vaping Use Vaping status: never used Substance and Sexual Activity Alcohol use: Never Drug use: Never Sexual activity: Not Currently Other Topics Concern Not on file Social History Narrative Not on file No Known Allergies Current Outpatient Medications Ordered in Epic Medication Sig ASCORBIC ACID WITH LINUS HIPS 500 MG tablet Take 1 tablet by mouth every morning. atorvastatin (LIPITOR) 10 MG tablet Take 10 mg by mouth. citalopram (CELEXA) 10 MG tablet Take 10 mg by mouth. ferrous sulfate 325 mg (65 mg [place] iron) tablet Take 1 tablet by mouth every morning. metFORMIN (GLUCOPHAGE) 500 MG immediate release tablet Take 500 mg by mouth daily with breakfast. mirtazapine (REMERON) 30 MG tablet Take 30 mg by mouth nightly at bedtime. Objective: Blood pressure 104/66. Gen: Alert, cooperative. Well-appearing on today's exam Psych: Mood and affect appropriate. Breast: Normal appearance, no masses or tenderness, no nipple retraction or dimpling bilaterally. No axillary or supraclavicular lymphadenopathy. Abdomen: Soft,non-tender. External Genitalia: Normal architecture, without lesions. No inguinal lymphadenopathy. Vagina: Mucosa is palepink with normal rugae. No abnormal discharge or lesions. Cystocele noted to introitus. Cervix: Appears flush with vagina, without discharge or lesions. No cervical motion tenderness. Papsmear obtained. Uterus: Normal size and shape. Anteverted position. Non-tender. Mobile Adnexa: No adnexal masses or tenderness bilaterally. Rectum - No external lesions Assessment/Plan: 65 y.o. 1. 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 Menopause without symptoms requiring treatment 3. Health Maintenance and Screening -Reviewed ASCCP guidelines. Pap smear collected, yearly pelvic exam , medicare is Q 2 years if normal risk -Reviewed breast self exam and breast self awareness. Yearly mammogram. -DEXA (first at age 65 or sooner with an additional risk factor (white, smoker, fracture history) -Reviewed importance of colon cancer screening. -Continue to follow with PCP for general medical care, colonoscopy, immunizations Problem List Items Addressed This Visit Female genital prolapse Current Assessment & Plan Cystocele noted at introitus Referral to urogynecology placed Relevant Orders Ambulatory referral to External Provider Other Visit Diagnoses Encounter for gynecological examination without abnormal finding - Primary Relevant Orders Mammogram Screening (Bilateral) Cervical Cancer Screening Jasmin Otoole MD documented in this encounter Miscellaneous Notes * Assessment & Plan Note - Jasmin Otoole MD - 08/01/2025 4:07 PM ESTAssociated Problem(s): Female genital prolapse Cystocele noted at introitus Referral to urogynecology placed documented in this encounter Plan of Treatment Pending Results Name Type Priority Associated Diagnoses Date /Time Cervical Cancer Screening Pathology and Cytology Routine Encounter for gynecological examination without abnormal finding 08/01/2025 3:33 PM EST Pap Test Pathology and Cytology Routine Encounter for gynecological examination without abnormal finding 08/01/2025 3:33 PM EST Human Papillomavirus (HPV), Nucleic Acid Amplification Lab Routine Encounter for gynecological examination without abnormal finding 08/01/2025 3:33 PM EST Scheduled Orders Name Type Priority Associated Diagnoses Orde r Schedule Mammogram Screening (Bilateral) Imaging Routine Encounter for gynecological examination without abnormal finding Expected: 08/01/2025, Expires: 08/01/2027 Scheduled Referrals Name Type Priority Associated Diagnoses Orde r Schedule Ambulatory referral to External Provider Outpatient Referral Routine Female genital prolapse, unspecified type Ordered: 08/01/2025 documented as of this encounter Visit Diagnoses Diagnosis Encounter for gynecological examination without abnormal finding- Primary Female genital prolapse, unspecified type documented in this encounter Care Teams Radial Drill Press Set Up Operator Relationship Specialty Start Date End Date Pcp, Unknown PCP - General 05/24/25 documented as of this encounter Additional Source Comments The information contained in this document represents components of the legal health record. It is not the complete legal health record.[facility]
--- NOTE | ~2025-08-04 | MM_ITS ---
EXAMINATION: MM SCREENING DIGITAL BREAST TOMOSYNTHESIS, BILATERAL CLINICAL INFORMATION: Screening. Asymptomatic. COMPARISON: Mammography: Comparison is made with available priors TECHNIQUE: Digital breast mammography with tomosynthesis is performed in both the craniocaudal and mediolateral oblique views along with computer-aided detection (CAD). FINDINGS: There are scattered areas of fibroglandular density. There are no significant masses, abnormal calcifications, or other abnormalities. MM/MM tomosynthesis screening BI IMPRESSION: No mammographic evidence of malignancy. ASSESSMENT: BI-RADS Category 1: Negative RECOMMENDATION: Routine annual mammography screening. 1 year F/U This examination should not preclude the clinical evaluation of a suspicious palpable abnormality. This patient's information was entered into a reminder system with a target due date for their next mammogram. Electronically signed by: Jossie Terrazas DO 08/04/2025 12:08 PM RAMON
--- OUTSIDE RECORDS SUMMARY | 2025-08-04 18:13 | XMS_ITS | Clinical Summary ---
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 12/16/2024 Active metFORMIN (GLUCOPHAGE) 500 MG immediate release tablet Take 500 mg by mouth daily with breakfast. 10/28/2024 Active citalopram (CELEXA) 10 MG tablet Take 10 mg by mouth. 04/28/2025 Active atorvastatin (LIPITOR) 10 MG tablet Take 10 mg by mouth. 12/21/2024 Active ferrous sulfate 325 mg (65 mg [place] iron) tablet Take 1 tablet by mouth every morning. 06/17/2025 Active ASCORBIC ACID WITH LINUS HIPS 500 MG tablet Take 1 tablet by mouth every morning. 06/17/2025 Active Active Problems Problem Noted Date Diagnosed Date Female genital prolapse 08/01/2025 Assessment & Plan (08/01/2025 4:07 PM EST): Cystocele noted at introitus Referral to urogynecology placed Encounters Date Type Department Care Team Description 08/01/2025 3:00 PM EST Office Visit [facility] [address] [place] [address] [place] [address] Jasmin Sainz MD Encounter for gynecological examination without abnormal finding (Primary Dx); Female genital prolapse, unspecified type from Last 3 Months Social History Tobacco Use Types Packs/Day Years [...] on file Sexual Orientation Not on file Last Filed Vital Signs Vital Sign Reading Time Taken Comments Blood Pressure 104/66 08/01/2025 3:17 PM EST Pulse - - Temperature - - Respiratory Rate - - Oxygen Saturation - - Inhaled Oxygen Concentration - - Weight - - Height - - Body Mass Index - - Plan of Treatment Health Maintenance Due Date Last Done Comments CREATININE LEVEL 1962 LIPID PANEL 1962 DEPRESSION SCREENING 1974 HEPATITIS C SCREENING 1980 HIV ONE-TIME SCREENING (18-6 5 YEARS) 1980 PAP SMEAR 1983 COLOGUARD 2007 COLONOSCOPY 2007 COLORECTAL CANCER SCREENING 2007 FIT TEST 2007 FOBT 2007 SIGMOIDOSCOPY 2007 VIRTUAL COLONOSCOPY 2007 PNEUMOCOCCAL VACCINES (50+ y ears) (1 of 1 - PCV) 2012 ZOSTER VACCINES (1 of 2) 2012 INFLUENZA VACCINE (#1) 2025 COVID-19 VACCINE ( - 2024-2 6 season) 2025 MAMMOGRAM 05/19/2025 05/19/2023 Adult Td,Tdap Booster 02/12/2033 02/12/2023 RSV VACCINE (1 - 1-dose 75+ series) 2037 SMOKING STATUS SCREENING (On ce After 26 Yrs) Completed 08/01/2025 HEPATITIS A VACCINES Aged Out No long [...] Devices Not on file Insurance [employer] [address] [place] [address] [employer] Care Teams Still Photographer Relationship Specialty Start Date End Date Pcp, Unknown PCP - General 05/24/25 Additional Source Comments The information contained in this document represents components of the legal health record. It is not the complete legal health record.[facility]
== END 2025-08-04 11:40 | disposition home or self-care (01) ==
LOC: HO.MAMMO 11:39
PROVIDERS: PCP Internal Medicine; Visit Provider Internal Medicine
DX: Z12.31 Encounter for screening mammogram for malignant neoplasm of breast (principal)
CPT/HCPCS: 77063; 77067

== ENCOUNTER → 2025-08-04 12:15 | Outpatient (BNV) | payer MEDICAID, SELFPAY | PROVIDERS: PCP Internal Medicine; Visit Provider Internal Medicine | DX: Z12.31 Encounter for screening mammogram for malignant neoplasm of breast (principal) | CPT/HCPCS: 77063; 77067 ==